=== PATIENT | male | born 1940 | race Caucasian/White ===

== ENCOUNTER → 2016-03-21 | Outpatient (CLI) | payer MEDICARE, BC ==
[~2016-03-21] MED LIST: ALBU17IN2 INH; ALBU83IN INH; ASPI81TA85 PO; ATEN25TA PO; COLA100C PO; FERG1TAB PO; FOLI1TAB2 PO; GABA300C3 PO; HYDR-3713 PO; MULTLIQ PO; NITR4TASL SL; PRAV40TA PO; SENO8.6T2 PO; SYMB16INH INH; TRIC1TAB PO; VITA500C24 PO; ZANT1TAB PO
== END ==
LOC: M ONCR 09:57
PROVIDERS: ATTEND Radiology Radiation Oncology
DX: C34.12 Malignant neoplasm of upper lobe, left bronchus or lung (principal)

== ENCOUNTER 2016-05-18 14:26 | Inpatient (IN) | payer MEDICARE, BC ==
[~2016-05-18] VITALS: Ht 167.6 cm; Wt 74.4 kg
[2016-05-18] MEDS: METOPROLOL 5 MG/5 ML VIAL IV SCH ×2 (00:12→00:17)
[2016-05-18] MEDS ORDERED: VITATAB11 PO (14:41)
[2016-05-18] MEDS ORDERED: [UNRECOGNIZED DRUG - CODE] (14:41)
[2016-05-18 16:01] LABS: BASO % 0.6 % (0.0-1.0); EOS # 0.2 K/mm3 (0.0-0.50); LARGE UNSTAINED CELL # 0.1 K/mm3 (0.0-0.4); LARGE UNSTAINED CELL % 0.6 % (0.0-4.0); LYMPH # 0.7 K/mm3 (1.5-4.5); LYMPH % 6.7 % (24.0-44.0); MEAN CORPUSCULAR HEMOGLOBIN 29.2 pg (27.0-33.0); MEAN CORPUSCULAR HGB CONC 32.4 g/dl (32.0-36.5); MONO # 0.5 K/mm3 (0.0-0.8); MONO % 5.4 % (0.0-5.0); NEUTROPHILS # 7.5 K/mm3 (1.8-7.7); NEUTROPHILS % 84.7 % (36.0-66.0); PLATELET COUNT, AUTOMATED 384 k/mm3 (150-450); RED CELL DISTRIBUTION WIDTH 13.1 % (11.5-14.5); WHITE BLOOD COUNT 8.9 K/mm3 (4.0-10.0)
--- NOTE | 2016-05-18 16:16 | REP ---
Portable chest x-ray: Sitting AP view: History: Dyspnea and cough. Comparison study 10/28/2014. Findings: The patient is status post prior median sternotomy. There is pleuroparenchymal opacity occupying the left lung apex unchanged from the 10/28/2014 prior study. The left hilus is retracted upward somewhat. There is some interstitial fibrosis in the left lung base and to a lesser extent in the right lung base. There is partial blunting of the right lateral pleural angle today. Pulmonary vascular and interstitial markings on the right are a little more prominent. Heart is not enlarged. Impression: Question small right effusion. Pulmonary vascular congestion noted on the right. Chronic changes on the left. Signed by Dillon Carrion MD 05/18/2016 05:19 P
[2016-05-18 16:43] LABS: ALBUMIN 3.3 GM/DL (3.2-5.2); ALBUMIN/GLOBULIN RATIO 0.89 (1.00-1.93); ALKALINE PHOSPHATASE 117 U/L (45-117); ANION GAP 9 MEQ/L (8-16); AST/SGOT 45 U/L (15-37); BILIRUBIN,DIRECT 0.2 MG/DL (0.0-0.2); BILIRUBIN,TOTAL 0.4 MG/DL (0.2-1.0); BLOOD UREA NITROGEN 12 MG/DL (7-18); CALCIUM LEVEL 8.3 MG/DL (8.8-10.2); CARBON DIOXIDE LEVEL 27 MEQ/L (21-32); CHLORIDE LEVEL 103 MEQ/L (98-107); CREATININE FOR GFR 0.96 MG/DL (0.70-1.30); GLOMERULAR FILTRATION RATE > 60.0 (>42); GLUCOSE, FASTING 105 MG/DL (83-110); MAGNESIUM LEVEL 2.3 MG/DL (1.8-2.4); POTASSIUM SERUM 3.9 MEQ/L (3.5-5.1); SODIUM LEVEL 139 MEQ/L (136-145)
[2016-05-18 16:51] LABS: ALT/SGPT 43 U/L (12-78)
[2016-05-18] MEDS ORDERED: AMOX875T PO (20:08)
[2016-05-18] MEDS ORDERED: PRESCAP6 PO (20:08)
[2016-05-18] MEDS ORDERED: ASPI1TAB PO (20:08)
[2016-05-18] MEDS ORDERED: FISH1000 PO (20:08)
[2016-05-18] MEDS ORDERED: NORCO, ANEXSIA 5/325MG TABLET (HYDROcodone/ACETAMINOPHEN) PO ONE (20:45)
[2016-05-18] MEDS ORDERED: GABAPENTIN 300 MG CAP PO ONE (20:45)
[2016-05-18] MEDS ORDERED: ISOVUE-370 76% 100ML VIAL (Q9967) As Ordered ONE (21:42)
[2016-05-18] MEDS ORDERED: NITROGLYCERIN 0.4 MG SUBL TABLET SL PRN (21:45)
[2016-05-18] MEDS ORDERED: LevoFLOXacin 750 MG TABLET PO ONE (22:00)
[2016-05-18 22:20] LABS: T UPTAKE 27 % (33-40); THYROXINE (T4) 3.5 UG/DL (4.5-12.0)
--- NOTE | 2016-05-18 23:05 | HPE ---
DATE OF ADMISSION: 05/18/2016 PRIMARY CARE PHYSICIAN: Dr. Wilson CHIEF COMPLAINT: Shortness of breath. HISTORY OF THE PRESENT ILLNESS: The patient is a 75-year-old man who has reportedly had a cough for the last 2 weeks. He presented to see his primary care provider 4 days ago and was prescribed amoxicillin. He states that over the last several days, his symptoms had improved but today, they were actually worsening. His checked his heart rate and found that his heart rate was in the 120s and so they called the primary care provider, who advised him to present to the emergency room. At the present time, the patient feels about the same. An EKG was done, and the patient was found to have a junctional rhythm. He does not have any improvement in his symptoms at this time. He denies fever or chills, chest pressure, lightheadedness, dizziness, nausea, vomiting or diarrhea. PAST MEDICAL HISTORY: Coronary artery disease, status post coronary artery bypass graft (CABG). Follows with Dr. Donato. Hypertension. Adenocarcinoma, currently undergoing surveillance. Chronic obstructive pulmonary disease (COPD). Former smoker. Bone cancer. Arteriovenous malformation (AVM) of the brain. PAST SURGICAL HISTORY: CABG. Cardiac stents. Tonsillectomy. Right cataract. Cervical spine surgery. SOCIAL HISTORY: The patient lives with his . He is a former smoker and former drinker, but nothing active at this time. He is a FULL CODE. ALLERGIES: SPIRIVA, ANGIOTENSIN-CONVERTING ENZYME (JAYY) INHIBITORS. REVIEW OF SYSTEMS: Negative other than in the history of the present illness. FAMILY HISTORY: Noncontributory. HOME MEDICATIONS: - amoxicillin 875 mg by mouth twice a day - PreserVision AREDS one capsule twice a day - hydrocodone 5-325 one tablet four times a day as needed for pain - Proventil two puffs inhaled every 4 hours as needed for respiratory distress - aspirin 81 mg daily - vitamin B complex - fish oil 1 gram nightly - folic acid 1 mg daily - gabapentin 300 mg twice a day - Nitrostat 0.4 mg sublingually as needed for chest pain - pravastatin 40 mg nightly PHYSICAL EXAMINATION: VITAL SIGNS: Temperature 98, pulse 122, stable, respiratory rate 18, blood pressure 141/72, oxygen saturation is 92% on room air. GENERAL: He is a very pleasant, elderly, man sitting up on the edge of the stretcher. He does not appear to be in any acute distress. HEENT: Cranial nerves II-XII are grossly intact. He has moist mucous membranes. No elevation of central venous pressure (CVP). No cervical lymphadenopathy. CARDIOVASCULAR EXAM: S1, S2, regular but tachycardic. RESPIRATORY EXAM: Clear. ABDOMINAL EXAM: Benign. EXTREMITIES: No clubbing, cyanosis or edema. LABORATORY STUDIES: WBC 8.9, hemoglobin 11.5, hematocrit 35.5, platelet count 384. Chemistry panel: Sodium 139, potassium 3.9, chloride 103, bicarbonate 27, BUN 12, creatinine 0.9. Troponin 0.32, second set approximately 3 hours later is 0.38. TSH is abnormally elevated at 31.6. Microbiology: Respiratory PCR panel is pending. Blood cultures are currently pending. IMAGING: The patient had a chest x-ray that reveals questionable small right effusion, pulmonary vascular congestion noted on the right, chronic changes on the left. EKG is revealing a junctional rhythm. ASSESSMENT AND PLAN: This is a 75-year-old man with new onset of junctional rhythm with demand ischemia. PROBLEMS: 1. Junctional rhythm. The patient's elevated troponin is likely related to type 2 demand ischemia. I have spoken with Dr. Donato, and I would like to give the patient metoprolol. He suggested IV metoprolol in order to get a target heart rate less than 100. I think this would do a great deal in terms of controlling the patient's symptoms. I will order an echocardiogram, admit him to the progressive care unit, recheck an EKG in the morning. His potassium and magnesium are optimized. 2. Cough and shortness of breath. Likely worsened symptomatic from his junctional rhythm, but he likely has some underlying infectious process going on for the last week and a half. He has been started on amoxicillin, but has not had improvement. I will transition to levofloxacin. At the present time, he not febrile. He does not have a focal consolidation on his x-ray. I will place him on levofloxacin for some possible bronchitis. However, I am more suspicious for viral infection, which is likely resolving. 3. Elevated thyroid-stimulating hormone (TSH). Will check a thyroid panel. I would not consider starting him on a thyroid medication at the present time given that he is already tachycardic. 4. Coronary artery disease. The patient is on an aspirin, statin and a beta jin, as we are starting metoprolol at this time. 5. Chronic pain. The patient is on gabapentin. 6. History of alcohol abuse. The patient is on folic acid and vitamin B complex. He is not actively drinking. 7. Chronic obstructive pulmonary disease (COPD), relatively mild. The patient appears to be at his baseline. Will continue with home inhalers. 8. Deep vein thrombosis (DVT) prophylaxis. The patient will be on Lovenox. DISPOSITION: The patient is admitted to the progressive care unit to Dr. Jason's service, who will continue following the patient at 7:00 a.m.
--- NOTE | 2016-05-18 23:10 | REPUSA ---
CLINICAL HISTORY: Shortness of breath, chest pain. TECHNIQUE: Multiple incremental axial, coronal and oblique images are obtained from the thoracic inle t to the upper abdomen. Intravenous contrast material was administered as per pulmonary embolism prot ocol. COMMENTS: There is excellent opacification of pulmonary arterial system without evidence for pulmonary embolism . Aorta is of normal caliber without evidence for dissection or aneurysm. Upper lobe predominant emphysema is seen. There is evidence of large right perihilar and suprahilar m ass measuring approximately 8 x 5 cm. Large right pleural effusion is seen. It is partially loculat ed. There is extensive right hilar adenopathy noted. There is marked volume loss involving left upper lobe with left apical consolidation noted. The gre at vessels are within normal limits. Status post median sternotomy and CABG. Images of the upper abdomen demonstrate no evidence of adrenal mass. The bony structures are free of lytic or blastic lesions. Multilevel degenerative changes are seen in volving the visualized thoracolumbar spine. Scattered calcifications are seen involving the aorta and major branches compatible with atherosclero sis. IMPRESSION: Large right hilar and suprahilar mass. Extensive right hilar adenopathy. Diffuse mediastinal adenopathy. Large right pleural effusion. Emphysema. Consider further evaluation with CT chest, abdomen and pelvis or PET CT. Thank you for your kind referral of this patient. We appreciate the opportunity to participate in thi s patient's care.
[2016-05-18 23:30] VITALS: BP 117/71
[2016-05-19] VITALS (9 sets, daily range): BP systolic 94–131; BP diastolic 56–84
[2016-05-19] MEDS: OMEGA-3 1050MG CAPSULE PO SCH ×2 (00:07→20:23)
[2016-05-19] MEDS: PRAVASTATIN 20 MG TAB PO SCH ×2 (00:07→20:22)
[2016-05-19] MEDS: METOPROLOL 5 MG/5 ML VIAL IV SCH (00:07)
[2016-05-19] MEDS: ALBUTEROL 90 MCG/ACT 8GM HFA INHALER INH PRN (02:14)
[2016-05-19] MEDS ORDERED: METOPROLOL 5 MG/5 ML VIAL IV PRN ×2 (02:15→06:00)
[2016-05-19 07:01] LABS: MEAN CORPUSCULAR HEMOGLOBIN 28.6 pg (27.0-33.0); MEAN CORPUSCULAR HGB CONC 32.1 g/dl (32.0-36.5); MEAN CORPUSCULAR VOLUME 89.3 fl (80.0-96.0); RED CELL DISTRIBUTION WIDTH 12.9 % (11.5-14.5); WHITE BLOOD COUNT 9.7 K/mm3 (4.0-10.0)
[2016-05-19 07:13] LABS: ANION GAP 10 MEQ/L (8-16); BLOOD UREA NITROGEN 11 MG/DL (7-18); CALCIUM LEVEL 8.3 MG/DL (8.8-10.2); CARBON DIOXIDE LEVEL 25 MEQ/L (21-32); CHLORIDE LEVEL 102 MEQ/L (98-107); CREATININE FOR GFR 0.84 MG/DL (0.70-1.30); GLOMERULAR FILTRATION RATE > 60.0 (>42); GLUCOSE, FASTING 99 MG/DL (83-110); POTASSIUM SERUM 3.9 MEQ/L (3.5-5.1); SODIUM LEVEL 137 MEQ/L (136-145)
--- NOTE | 2016-05-19 09:06 | ECGEPIP ---
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
[2016-05-19] MEDS: ASPIRIN 81 MG ENTERIC TAB PO SCH (09:21)
[2016-05-19] MEDS: VITAMIN B COMPLEX/VIT C CAP PO SCH (09:21)
[2016-05-19] MEDS: GABAPENTIN 300 MG CAP PO SCH ×2 (09:21→20:24)
[2016-05-19] MEDS: FOLIC ACID 1 MG TAB PO SCH (09:21)
[2016-05-19] MEDS: ENOXAPARIN 40 MG/0.4 ML SYRINGE (J1650) SC SCH (09:22)
[2016-05-19] MEDS: NORCO, ANEXSIA 5/325MG TABLET (HYDROcodone/ACETAMINOPHEN) PO PRN ×2 (09:25→20:23)
[2016-05-19] MEDS: AMIODARONE 200 MG TAB (PACERONE) PO SCH ×4 (09:57→20:24)
[2016-05-19] MEDS ORDERED: AMIODARONE 200 MG TAB (PACERONE) PO SCH (12:00)
--- NOTE | 2016-05-19 12:57 | IPNPDOC ---
Subjective Date Seen The patient was seen on 05/19/16. Subjective Chief Complaint/HPI Pt c/o about 2-3 w of increased cough, and RUSSELL, low exercise tolerance. is at bedside and she agrees. States that they have a scan scheduled for Spring ordered by Dr Weber to follow up on lung nodules. No longer following with oncology. General: Reports: Fatigue Constitutional: Denies: Chills, Fever ENT: Denies: Head Aches Pulmonary: Reports: Cough, Dyspnea Cardiovascular: Denies: Chest Pain, Palpitations Gastrointestinal: Denies: Diarrhea, Nausea, Vomiting Neurological: Reports: Weakness Psych: Reports: Mood Normal Objective Physical Examination General Exam: Positive: Alert, No Acute Distress ENT Exam: Positive: Mucous membr. moist/pink Neck Exam: Positive: Supple Chest Exam: Positive: Diminished (thoughout, but especially in right base, middle lung ulloa. scattered rhonchi, improves with cough) Heart Exam: Positive: Normal S1, Rate Normal Abdomen Exam: Positive: Normal bowel sounds, Soft, Negative: Tenderness Psych Exam: Positive: Mood NL, Oriented x 3 Assessment /Plan Problems (1) Junctional tachycardia Status: Acute Discussed With: Adjunct Professor Of English, Patient, Family with Pt Consent Problem Specific Plan: Consult Specialist, Monitor Clinically, Repeat Labs Problem Text: Dr Donato has been consulted, he has spoken with Dr Jason. Rec starting Amio, which has been ordered. (2) Mediastinal mass Status: Acute Problem Specific Plan: Monitor Clinically Problem Text: Pt has a h/o of adenocarcinoma of the lung, he has followed with Dr Weber for this, he has undergone chemotherapy with palliative Radiation therapy per the Onc notes. Last CT done 11/24 with relatively stable nodules. Will obtain CT with contrast of the chest, A & P. This is likely the source of his cough and SOB. Will request consult Dr. Macias, whom he has seen before. (3) History of adenocarcinoma of lung Status: Chronic Problem Specific Plan: Consult Specialist, Monitor Clinically Problem Text: See above. (4) CAD (coronary artery disease) of artery bypass graft Status: Chronic Problem Specific Plan: Monitor Clinically Problem Text: Cont with ASA, statin. Cardio follow. Plan/VTE VTE Prophylaxis Ordered?: Yes Plan Advance Directives: HCP Full code VS, I&O, 24H, Fishbone Vital Signs/I&O Vital Signs Date Time Temp Pulse Resp B/P Pulse Ox O2 Delivery O2 Flow Rate FiO2 05/19/16 12:21 97.0 117 20 131/84 94 Nasal Cannula 2.0 I&O- Last 24 Hours up to 6 AM 05/19/16 06:00 Intake Total 480 ml Output Total 250 ml Balance 230 ml Laboratory Data 24H LABS Laboratory Tests 2 05/18/16 15:51: Aspartate Amino Transf (AST/SGOT) 45H, Alanine Aminotransferase (ALT/SGPT) 43, Alkaline Phosphatase 117, Total Bilirubin 0.4, Direct Bilirubin 0.2, Albumin 3.3 , Albumin/Globulin Ratio 0.89L, Anion Gap 9, B-Type Natriuretic Peptide 83.9, White Blood Count 8.9, Red Blood Count 3.95L, Hemoglobin 11.5L, Hematocrit 35.5L , Mean Corpuscular Volume 90.0, Mean Corpuscular Hemoglobin 29.2, Mean Corpuscular Hemoglobin Concent 32.4, Red Cell Distribution Width 13.1, Platelet Count 384, Neutrophils (%) (Auto) 84.7H, Lymphocytes (%) (Auto) 6.7L, Monocytes (%) (Auto) 5.4H, Eosinophils (%) (Auto) 2.0, Basophils (%) (Auto) 0.6, Neutrophils # (Auto) 7.5, Lymphocytes # (Auto) 0.7L, Monocytes # (Auto) 0.5, Eosinophils # (Auto) 0.2, Basophils # (Auto) 0.0, C-Reactive Protein, Quantitative 12.60H, Calcium Level 8.3L, Creatine Kinase MB 5.7H, Creatine Kinase MB Relative Index 2.92, Erythrocyte Sedimentation Rate 85H, Free Thyroxine Index 0.9L, Glomerular Filtration Rate > 60.0, Large Unclassified Cells # 0.1, Large Unclassified Cells % 0.6, Magnesium Level 2.3, Thyroid Stimulating Hormone (TSH) 31.600H, Thyroxine (T4) 3.5L, Total Creatine Kinase 195, Total Protein 7.0, Triiodothyronine (T3) Uptake 27L, Troponin I 0.32H 05/18/16 19:09: Creatine Kinase MB 5.5H, Creatine Kinase MB Relative Index 2.95, Total Creatine Kinase 186, Troponin I 0.38H 05/19/16 00:40: Troponin I 0.35H 05/19/16 06:36: Anion Gap 10, Calcium Level 8.3L, Glomerular Filtration Rate > 60.0, Troponin I 0.47#H, Blood Urea Nitrogen 11, Creatinine 0.84, Sodium Level 137, Potassium Level 3.9, Chloride Level 102, Carbon Dioxide Level 25 CBC/BMP Laboratory Tests 05/18/16 15:51 Red Blood Count 3.95 L, Mean Corpuscular Volume 90.0, Mean Corpuscular Hemoglobin 29.2, Mean Corpuscular Hemoglobin Concent 32.4, Red Cell Distribution Width 13.1, Neutrophils (%) (Auto) 84.7 H, Lymphocytes (%) (Auto) 6.7 L, Monocytes (%) (Auto) 5.4 H, Eosinophils (%) (Auto) 2.0, Basophils (%) ( Auto) 0.6, Neutrophils # (Auto) 7.5, Lymphocytes # (Auto) 0.7 L, Monocytes # ( Auto) 0.5, Eosinophils # (Auto) 0.2, Basophils # (Auto) 0.0 05/19/16 06:36 Red Blood Count 3.78 L, Mean Corpuscular Volume 89.3, Mean Corpuscular Hemoglobin 28.6, Mean Corpuscular Hemoglobin Concent 32.1, Red Cell Distribution Width 12.9, Calcium Level 8.3 L Microbiology Microbiology 05/18/16 Blood Culture, Received Pending 05/18/16 Blood Culture, Received Pending 05/18/16 Respiratory Virus Panel (PCR) (AMISHA) - Final, Complete Attending Note Attending Note Will need consults from Pulmonary, Med Onc, Radiation Oncology, and possible Thoracic surgery. Start with Pulmonary tomorrow. Dr. Donato has been consulted regarding the tachyarrhythmia and Amiodarone started per his recommendation. WAQAR ANDERSON PA-C May 19, 2016 12:57 Fletcher Jason MD May 19, 2016 14:10
--- NOTE | 2016-05-19 15:06 | ECGEPIP ---
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
--- NOTE | 2016-05-19 15:15 | ECGEPIP ---
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
[2016-05-19] MEDS: LevoFLOXacin 750 MG TABLET PO SCH (17:56)
[2016-05-20] VITALS: BP 101/56
[2016-05-20 04:00] VITALS: BP 103/57
[2016-05-20 05:35] LABS: MEAN CORPUSCULAR HEMOGLOBIN 29.7 pg (27.0-33.0); MEAN CORPUSCULAR HGB CONC 32.7 g/dl (32.0-36.5); MEAN CORPUSCULAR VOLUME 90.9 fl (80.0-96.0); RED CELL DISTRIBUTION WIDTH 13.2 % (11.5-14.5); WHITE BLOOD COUNT 9.2 K/mm3 (4.0-10.0)
[2016-05-20 05:45] LABS: ANION GAP 8 MEQ/L (8-16); BLOOD UREA NITROGEN 13 MG/DL (7-18); CALCIUM LEVEL 8.1 MG/DL (8.8-10.2); CARBON DIOXIDE LEVEL 28 MEQ/L (21-32); CHLORIDE LEVEL 102 MEQ/L (98-107); CREATININE FOR GFR 1.02 MG/DL (0.70-1.30); GLOMERULAR FILTRATION RATE > 60.0 (>42); GLUCOSE, FASTING 99 MG/DL (83-110); POTASSIUM SERUM 4.1 MEQ/L (3.5-5.1); SODIUM LEVEL 138 MEQ/L (136-145)
[2016-05-20] MEDS ORDERED: GASTROGRAFIN SOLUTION 30ML PO ONE (07:00)
[2016-05-20] MEDS ORDERED: GASTROGRAFIN SOLUTION 30ML (Q9963) PO ONE (07:30)
[2016-05-20] MEDS: VITAMIN B COMPLEX/VIT C CAP PO SCH (07:53)
[2016-05-20] MEDS: GABAPENTIN 300 MG CAP PO SCH ×2 (07:53→21:31)
[2016-05-20] MEDS: ASPIRIN 81 MG ENTERIC TAB PO SCH (07:53)
[2016-05-20] MEDS: FOLIC ACID 1 MG TAB PO SCH (07:53)
[2016-05-20] MEDS: AMIODARONE 200 MG TAB (PACERONE) PO SCH ×4 (07:53→21:31)
[2016-05-20] MEDS: ENOXAPARIN 40 MG/0.4 ML SYRINGE (J1650) SC SCH (07:54)
[2016-05-20 07:58] VITALS: BP 112/71
[2016-05-20] MEDS ORDERED: ISOVUE-370 76% 100ML VIAL (Q9967) As Ordered ONE (08:25)
--- NOTE | 2016-05-20 08:28 | ECGEPIP ---
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
--- NOTE | 2016-05-20 09:39 | IPNPDOC ---
Subjective Date Seen The patient was seen on 05/20/16. Subjective Chief Complaint/HPI Pt without new concerns. Breathing about the same with SOB, and cough. at bedside. General: Denies: Fatigue Constitutional: Denies: Chills, Fever Pulmonary: Reports: Cough, Dyspnea Cardiovascular: Denies: Chest Pain, Palpitations Gastrointestinal: Denies: Diarrhea, Nausea, Vomiting Neurological: Reports: Weakness Psych: Reports: Mood Normal Objective Physical Examination General Exam: Positive: Alert, No Acute Distress ENT Exam: Positive: Mucous membr. moist/pink Neck Exam: Positive: Supple Chest Exam: Positive: Diminished (thoughout, but especially in right base, middle lung ulloa. scattered rhonchi, improves with cough) Heart Exam: Positive: Normal S1, Rate Normal Abdomen Exam: Positive: Normal bowel sounds, Soft, Negative: Tenderness Psych Exam: Positive: Mood NL, Oriented x 3 Assessment /Plan Problems (1) Junctional tachycardia Status: Acute Discussed With: Contract Lead, Patient, Family with Pt Consent Problem Specific Plan: Consult Specialist, Monitor Clinically, Repeat Labs Problem Text: 05/20 - Rate remains mostly 110s, on Amio. 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 05/19 Dr Donato has been consulted, he has spoken with Dr Jason. Rec starting Amio, which has been ordered. (2) Mediastinal mass Status: Acute Problem Specific Plan: Monitor Clinically Problem Text: 05/20 - CT chest, A & P just done. Pt has seen Dr Macias in the past, will need consult for her recommendation on proceeding with investigation of the mass. 05/19 Pt has a h/o of adenocarcinoma of the lung, he has followed with Dr Weber for this, he has undergone chemotherapy with palliative Radiation therapy per the Onc notes. Last CT done 11/24 with relatively stable nodules. Will obtain CT with contrast of the chest, A & P. This is likely the source of his cough and SOB. Will request consult Dr. Macias, whom he has seen before. (3) History of adenocarcinoma of lung Status: Chronic Problem Specific Plan: Consult Specialist, Monitor Clinically Problem Text: See above. (4) CAD (coronary artery disease) of artery bypass graft Status: Chronic Problem Specific Plan: Monitor Clinically Problem Text: Cont with ASA, statin. Cardio follow. Plan/VTE VTE Prophylaxis Ordered?: Yes Plan Advance Directives: HCP VS, I&O, 24H, Fishbone Vital Signs/I&O Vital Signs Date Time Temp Pulse Resp B/P Pulse Ox O2 Delivery O2 Flow Rate FiO2 05/20/16 07:58 97.8 95 22 112/71 94 Nasal Cannula 2.0 I&O- Last 24 Hours up to 6 AM 05/20/16 06:00 Intake Total 1140 ml Output Total 975 ml Balance 165 ml Laboratory Data 24H LABS Laboratory Tests 2 05/20/16 05:07: Anion Gap 8, Blood Urea Nitrogen 13, Creatinine 1.02, Sodium Level 138, Potassium Level 4.1, Chloride Level 102, Carbon Dioxide Level 28, Calcium Level 8.1L, Glomerular Filtration Rate > 60.0 CBC/BMP Laboratory Tests 05/20/16 05:07 Calcium Level 8.1 L, Red Blood Count 3.57 L, Mean Corpuscular Volume 90.9, Mean Corpuscular Hemoglobin 29.7, Mean Corpuscular Hemoglobin Concent 32.7, Red Cell Distribution Width 13.2 Microbiology Microbiology 05/18/16 Blood Culture - Preliminary, Resulted No growth after 24 hours . All specim... 05/18/16 Blood Culture - Preliminary, Resulted No growth after 24 hours . All specim... 05/18/16 Respiratory Virus Panel (PCR) (AMISHA) - Final, Complete WAQAR ANDERSON PA-C May 20, 2016 09:39
[2016-05-20 12:15] VITALS: BP 113/79
--- NOTE | 2016-05-20 12:29 | ECHO ---
DATE OF PROCEDURE: 05/19/2016 HEIGHT: 66 inches. WEIGHT: 171 pounds. BODY SURFACE AREA: 1.87 meters squared. REFERRING PHYSICIAN: Dr. Olmstead INDICATION: Abnormal EKG. MEASUREMENTS: 2-D Measurements: RV - 3.4 cm LV - 4.6 cm Septum - 1.3 cm Posterior wall - 1.3 cm Aortic root - 3.0 cm LA - 4.2 cm LVEF - 45 to 50% Doppler Measurements: AV - 1.9 meters per second LVOT - 1.0 meters per second LVOT diameter - 2.3 cm MV-E -150 Early mitral deceleration time - 108 milliseconds E prime -8, E/E prime ratio 18 PV - 0.8 meters per second Pulmonary artery acceleration time - 106 milliseconds RVSP - 31 mmHg IVC - 1.6 cm COMMENTS: Atrial tachycardia versus slow atrial flutter with somewhat variable ventricular response but no intraventricular conduction disturbance. Mildly dilated left atrium but normal left ventricular size. Right heart chamber sizes were also normal. LV wall thickness was mildly increased symmetrically. On real-time imaging from the parasternal and apical projections the inferoseptal/inferior wall was hypokinetic to akinetic but other calixto appear to move normally. Mild to moderate mitral annular thickening with normal leaflet thickness and excursion and no posterior systolic buckling. Difficult to ascertain how many aortic cusps there were. There was a moderate degree of cusp thickening with reduced cusp separation. Normal aortic root size. No apparent intracardiac mass or pericardial effusion. Color flow Doppler study taken from the parasternal and apical projection showed very mild aortic, mild? moderate? mitral and mild tricuspid insufficiency. Guided continuous wave Doppler of his aortic valve and pulsed Doppler study of his LV outflow tract taken from the apical long axis and five-chamber projection showed a borderline increased peak systolic velocity with mean gradient of 10 mmHg and dimensionless index of 0.47 suggestive of a marginal degree of calcific aortic stenosis. Guided pulsed and continuous wave Doppler of his LV inflow tract taken from the apical four-chamber projection showed normal diastolic filling velocities against mitral stenosis. There was only an early diastolic/passive filling pattern as we would expect with his tachycardia. His early mitral deceleration time was abbreviated. Using pulsed and tissue Doppler of his mitral annulus, we were able to estimate his mean left atrial pressure at approximately 20 mmHg. Pulsed and continuous wave Doppler of his pulmonary trunk showed a normal peak systolic velocity against RV outflow tract obstruction. His pulmonary artery acceleration time was slightly abbreviated suggestive of a degree of elevated pulmonary vascular resistance. Guided continuous wave Doppler of his tricuspid valve allowed our estimation of his right ventricular systolic pressure (borderline increased). His inferior vena cava was of normal size with normal respiratory collapse against an elevated central venous pressure. CONCLUSIONS: Mild concentric left ventricle hypertrophy with inferoseptal/inferior hypokinesis and at least mild impairment of global resting systolic function. 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 Mildly dilated left atrium with Doppler evidence of an elevated mean left atrial pressure. Normal right heart chamber sizes and wall motion with borderline increased estimated pulmonary arterial pressure. Normal IVC size and collapse against an elevated central venous pressure. Marginal calcific aortic stenosis with very mild insufficiency. Mitral annular calcification without inflow tract obstruction with mild insufficiency.
--- NOTE | 2016-05-20 15:06 | REP ---
REASON: Known chest mass. COMPARISON: 05/18/2016. Contrast utilized: 100 mL Isovue 370. Once again, there is a large right hilar mass, which occludes the right lower lobe bronchus and markedly narrows the right middle lobe bronchus mildly narrowing the bronchus to the right upper lobe. This mass is seen in conjunction with mediastinal adenopathy. The right lower lobe pulmonary artery is encased by the mass but does not appear to be narrowed. There is a moderate right pleural effusion, which has increased in size from the prior exam. There is no pericardial effusion. There is no change in the appearance of the imaged upper abdomen or imaged osseous structures. Evaluation of the lung ulloa show increased densities in the right lower lobe and right middle lobe compared to the prior exam. There is new consolidation with air bronchograms in the anterior left upper lobe. Scattered numerable tiny nodular densities are seen throughout the lung ulloa, status quo. There is no change in the appearance of the thoracic aorta. Right upper lobe increased opacities are also noted compared to the prior exam. IMPRESSION: 1. Increased right pleural effusion. 2. Increased abnormal right lower and right middle lobe opacities with increased opacities in the right upper lobe. 3. Right hilar vascular and bronchial findings as described above. 4. New abnormal left upper lobe opacity as described above. 5. Unchanged innumerable nodular densities throughout the lung ulloa. 6. Other findings as described above. Signed by Surendra Starr DO 05/20/2016 03:18 P
--- NOTE | 2016-05-20 15:12 | REP ---
REASON: Known mass. No prior abdominal CT studies for comparison. Contrast utilized 100 mL Isovue 370. There are numerable liver lesion; two low density at the hepatic dome each having increased density surrounding them suggestive of peripheral enhancement. There is a similar finding seen in the anterior segment of the right lobe. Scattered areas of increased enhancement are seen in the hepatic parenchyma. The gallbladder, spleen, pancreas, adrenal glands, and kidneys are within normal limits. The abdominal aorta and para-aortic regions are within normal limits for the patient's age. No free fluid or free air is seen in the abdomen or pelvis. The intra-abdominal and intrapelvic bowel loops and their mesenteries are within normal limits. There are scattered colonic diverticula. There is no evidence of an intra-abdominal or intrapelvic mass or adenopathy. 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 There are calcifications in the pelvis which closely reside to the posterior urinary bladder wall. I cannot completely rule out the possibility of a few small cystoliths. This needs to be correlated clinically. The calcifications may in fact be within the urinary bladder wall. Bone window technique throughout the exam shows bony demineralization which is probably degenerative changes. IMPRESSION: 1. Hepatic lesions suspicious for metastatic disease. 2. Pelvic calcifications with prostatomegaly and corpora amylacea as described above. 3. Other findings as described above. Signed by Surendra Starr DO 05/20/2016 03:18 P
[2016-05-20 16:00] VITALS: BP 126/60
[2016-05-20] MEDS: LevoFLOXacin 750 MG TABLET PO SCH (17:49)
[2016-05-20] MEDS: NORCO, ANEXSIA 5/325MG TABLET (HYDROcodone/ACETAMINOPHEN) PO PRN (19:14)
[2016-05-20 20:00] VITALS: BP 109/62
[2016-05-20] MEDS: PRAVASTATIN 20 MG TAB PO SCH (21:31)
[2016-05-21] VITALS (9 sets, daily range): BP systolic 100–139; BP diastolic 56–67; O2SAT 94
[2016-05-21] MEDS: NORCO, ANEXSIA 5/325MG TABLET (HYDROcodone/ACETAMINOPHEN) PO PRN ×4 (00:02→22:00)
[2016-05-21] MEDS ORDERED: SLF 3 ML SYR IV PRN (02:15)
[2016-05-21] MEDS: ALBUTEROL 90 MCG/ACT 8GM HFA INHALER INH PRN ×2 (04:29→21:44)
[2016-05-21 05:44] LABS: MEAN CORPUSCULAR HEMOGLOBIN 29.6 pg (27.0-33.0); MEAN CORPUSCULAR HGB CONC 32.6 g/dl (32.0-36.5); MEAN CORPUSCULAR VOLUME 90.6 fl (80.0-96.0); RED CELL DISTRIBUTION WIDTH 13.2 % (11.5-14.5); WHITE BLOOD COUNT 9.7 K/mm3 (4.0-10.0)
[2016-05-21 05:47] LABS: INR 1.21
[2016-05-21 05:51] LABS: ANION GAP 10 MEQ/L (8-16); BLOOD UREA NITROGEN 14 MG/DL (7-18); CALCIUM LEVEL 8.2 MG/DL (8.8-10.2); CARBON DIOXIDE LEVEL 27 MEQ/L (21-32); CHLORIDE LEVEL 99 MEQ/L (98-107); CREATININE FOR GFR 1.07 MG/DL (0.70-1.30); GLOMERULAR FILTRATION RATE > 60.0 (>42); GLUCOSE, FASTING 105 MG/DL (83-110); POTASSIUM SERUM 3.8 MEQ/L (3.5-5.1); SODIUM LEVEL 136 MEQ/L (136-145)
[2016-05-21] MEDS: SLF 3 ML SYR IV SCH ×3 (05:58→21:59)
[2016-05-21] MEDS: FOLIC ACID 1 MG TAB PO SCH (09:20)
[2016-05-21] MEDS: GABAPENTIN 300 MG CAP PO SCH ×2 (09:20→21:56)
[2016-05-21] MEDS: ASPIRIN 81 MG ENTERIC TAB PO SCH (09:20)
[2016-05-21] MEDS: AMIODARONE 200 MG TAB (PACERONE) PO SCH ×4 (09:20→21:56)
--- NOTE | 2016-05-21 11:01 | REP ---
Portable chest x-ray: Single view. History: Pleural fluid evaluation. Comparison study May 18, 2016. Findings: The patient is status post median sternotomy. There is atelectasis in the left upper lobe with upward elevation left hemidiaphragm unchanged from comparison study. There is increased blunting of the right lateral pleural angle and slight elevation right hemidiaphragm today consistent with increased effusion. There is some consolidation or interstitial edema in the right lung, principally lower lobe. Fullness in the right hilar region is again seen. Impression: Increased right pleural fluid and increased parenchymal opacity right lung. Signed by Dillon Carrion MD 05/21/2016 12:27 P
--- NOTE | 2016-05-21 12:24 | ECGEPIP ---
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
--- NOTE | 2016-05-21 12:44 | REP ---
Chest x-ray: Two views. History: Patient status post right thoracentesis under ultrasound guidance. Comparison study May 21, 2016. Findings: There is improved aeration in the right lung. There is no visible pneumothorax. Chronic changes noted on the left are again seen. Impression: Improved aeration right lung post thoracentesis. No complication is identified. Signed by Dillon Carrion MD 05/21/2016 07:16 P
[2016-05-21 12:51] LABS: LDH, BODY FLUID 213 U/L (NOT ESTABLISHED); TOTAL PROTEIN, BODY FLUID 4.7 G/DL (NOT ESTABLISHED)
[2016-05-21 12:59] LABS: RBC PLEURAL FLUID < 10 (<10mm3 cells/uL); TNC PLEURAL FLUID 703 cells/uL (0-20)
[2016-05-21 13:00] LABS: BF DIFF IF INDICATED? YES (NO)
[2016-05-21 14:39] LABS: CC BF DIFF EXAM CYTOCENTRIFUGE
--- NOTE | 2016-05-21 15:15 | CR ---
DATE OF CONSULTATION: 05/20/2016 NOTE: Asked by Dr. Jason to evaluate Mr. Griffin for changes on his chest CT scan. Alli, as he prefers to be called, is a 75-year-old white male well-known to me from his history of chronic obstructive pulmonary disease (COPD) as well as metastatic adenocarcinoma of the left lung for which he has undergone radiation therapy (XRT) and chemotherapy. Alli began to feel generally unwell 2-3 weeks ago with increasing shortness of breath. He was noting marked dyspnea with short distances, such as walking to the bathroom. He also developed a cough that he states was occasionally productive of yellowish sputum. His , who was present when I was in the room, states it sounded like a deep cough. No fevers. No wheezing. He had a little bit of discomfort in the right lower lobe or right upper gastric region that has resolved. He was seen by his primary care provider and he was diagnosed with sinusitis and started on amoxicillin. His went to take his blood pressure on Saturday evening because he was feeling unwell and noted that his pulse was 128 so she brought him to the emergency room. During his evaluation there, he was found to have a junctional rhythm. He also had a pulmonary angiogram done which had shown chronic changes on the left, but now had shown a new right perihilar and suprahilar mass as well as a small pleural effusion. It was less clear as to whether or not there was any postobstructive process, but there did not appear to be any consolidated regions. It was because of these changes that pulmonary was consulted. Alli feels about the same as when he came in. He has no difficulty with resting but still notes significant shortness of breath with walking. He has no further chest pain or upper abdominal pain. No wheezing. He continues with a cough that is essentially unchanged. No hemoptysis. No fevers, chills, or drenching night sweats. No lower extremity edema. He has had some postnasal drip symptoms. No heartburn or gastroesophageal reflux disease (GERD) symptoms. No lower extremity edema. No diarrhea or other acute infective processes. No ill contacts. ALLERGIES: LISINOPRIL and SPIRIVA. MEDICATIONS ON ADMISSION: - hydrocodone 5/325 one tablet by mouth four times a day as needed - albuterol nebulization every 4 hours as needed - amoxicillin 875 mg by mouth twice a day - aspirin 81 mg by mouth daily - vitamin B complex one by mouth daily - fish oil 1000 mg by mouth every evening - folic acid 1 mg by mouth daily - gabapentin 300 mg by mouth twice a day - Nitrostat 0.4 mg as needed - Pravachol 40 mg by mouth every 8 hours - PreserVision AREDS one capsule by mouth twice a day PAST MEDICAL HISTORY: 1. Abnormal chest CT scan post treatment with opacification of the left upper lung region. 2. Metastatic adenocarcinoma of the left lung; status post XRT to the left upper lobe and chemotherapy. 3. COPD; mild/moderate with partial reversibility. a. FEV1 1.88 (73%) and FVC 2.76 (77%) with a normal FEV1/FVC ratio of 68% in July 2015. 4. Right lower lobe nodule measured at 18 mm that was biopsied by electromagnetic navigation bronchoscopy (ENB) with negative results that were considered nondiagnostic. 5. Coronary artery disease (CAD). a. Status post coronary artery bypass graft (CABG) and cardiac stents. 6. Status post tonsillectomy. 7. Status post right cataract surgery. 8. Cervical spine surgery. 9. Arteriovenous malformation (AVM). 10. Bone cancer per patient status post XRT. 11. History of significant alcohol usage. 12. History of tobacco usage. SOCIAL HISTORY: Alli is and lives with his . 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 FAMILY HISTORY: His father in his late 60s and had heart disease. His mother in her late 60s and he is not aware of any significant medical illness. REVIEW OF SYSTEMS: Per history of present illness (HPI). Pertinent review of systems are negative. PHYSICAL EXAMINATION: GENERAL: Alli is lying in bed in no acute distress. At times he is difficult to understand. VITAL SIGNS: Temperature 96.3, pulse 78, respiratory rate 20, blood pressure 113/79 with a mean arterial pressure (MAP) of 90, SpO2 94% on FiO2 of 2 liters. HEENT: Anicteric. Nares patent bilaterally, oxygen tubing in place. Oropharynx clear, no lesions. No evidence of drainage in the posterior pharynx. Edentulate, Mallampati II. Facies normal. NECK: Supple, without jugular venous distention (JVD), thyromegaly, or masses, trachea is midline. LYMPHATICS: Without cervical, supraclavicular, or lymphadenopathy. CHEST: Normal size and shape. Lungs symmetric excursion. Generalized diminished air entry with absent air entry at the right base. There is dullness to percussion over the same region. Rare expiratory wheeze. No rhonchi or crackle on tidal excursion. No accessory muscle usage or retractions. Normal palpation. There is also dullness to percussion over the left upper lung region. CARDIOVASCULAR: Regular rate and rhythm with a normal S1, S2, no murmur, rub, or gallop appreciated. ABDOMEN: Normoactive bowel sounds, soft, nondistended, nontender, no hepatosplenomegaly or masses appreciated. EXTREMITIES: Without clubbing, cyanosis, or edema. No calf tenderness. Palpable pedal pulses bilaterally. LABORATORY DATA: CBC shows a hemoglobin of 10.6, hematocrit 32.4, platelet count 386,000, white blood cell count 9200. Chemistry shows sodium 138, potassium 4.1, chloride 102, bicarbonate 28, anion gap 8, BUN 13, creatinine 1.0, glucose 99, calcium 8.1. I reviewed his chest CT scan as well as his CT pulmonary angiogram and the report of the CTA. That film showed a consolidated region in the left upper lobe which, in comparing to his CT scan from December 2014, is chronic and related to his previous therapy. He has mild emphysematous changes predominantly in the upper lobes bilaterally. Normal appearing cardiac silhouette and pulmonary vascular shadows. There is a small pulmonary effusion on the right (only a blunting on chest xray) with right hilar adenopathy and a right perihilar and suprahilar mass measured at 8.8 x 5 cm. There are also enlarged mediastinal lymph nodes. There appears to be some necrotic regions within the suprahilar mass as well as possibly one of the mediastinal lymph nodes. IMPRESSION: 1. Abnormal chest CT scan with right-sided suprahilar and parahilar mass. Unfortunately, the most likely diagnosis is lung cancer, either a recurrence or a new primary. 2. Right pleural effusion, possibly malignant or possibly secondary to volume loss on the right side. 3. Cough, likely related to the findings on the chest CT scan. 4. Dyspnea on exertion. Again, I suspect that this is related to the changes on chest CT scan as he only demonstrated mild obstructive disease in July 2015. It seems less likely that this is secondary to a pneumonic process. 5. Chronic obstructive pulmonary disease (COPD), mild/moderate at baseline, felt secondary to emphysema. He also has a significant reversible component. 6. Coronary artery disease (CAD). 7. Cerebral arteriovenous malformation (AVM). 8. History of ethyl alcohol (EtOH) and tobacco usage. RECOMMENDATIONS: 1. I spoke to Bridgette from Dr. Jason's service and recommended a large volume thoracentesis to be sent off for cell count and differential, lactate dehydrogenase (LDH), total protein, glucose, gram stain and culture and cytology. 2. I reviewed the chest CT scan with Alli and his and answered questions. I discussed with them that unfortunately this is likely a new or recurrent lung cancer. I told them that after the thoracentesis we would likely need to re-image his chest to decide on a procedure for obtaining tissue if his choice was to go on for further treatment. His treatment options are likely to be limited given his previous history. 3. Agree with antibiotics, though again I am not certain there is a postobstructive process present. 4. Would continue as needed bronchodilators. When I last saw Alli in clinic in July 2015, he was no longer on any controller therapy. Thank you for this consult and we will continue to follow with you.
--- NOTE | 2016-05-21 16:00 | IPNPDOC ---
Subjective Date Seen The patient was seen on 05/21/16. Subjective Chief Complaint/HPI The patient is a 75-year-old male admitted with a reason for visit of SOB. He is status post thoracentesis. His notes that he has been oxygenating better afterwards, and he feels that he is less short of breath. He is interested in leaving the hospital soon. He complains of low back pain, which is chronic, and is somewhat upset that he is being awakened for vital signs. Constitutional: Reports: Fatigue, Weakness, Denies: Fever Pulmonary: Reports: Cough, Dyspnea Cardiovascular: Denies: Chest Pain Gastrointestinal: Denies: Constipation Musculoskeletal: Reports: Back Pain Psych: Reports: Mood Normal Objective Physical Examination General Exam: Positive: Alert, No Acute Distress ENT Exam: Positive: Mucous membr. 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 05/20 - Rate remains mostly 110s, on Amio. 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 05/19 Dr Donato has been consulted, he has spoken with Dr Jason. Rec starting Amio, which has been ordered. (2) Mediastinal mass Status: Acute Problem Specific Plan: Monitor Clinically Problem Text: 05/21 -- Thoracentesis performed today, labs pending. Dr. Macias consulted. Will attempt to titrate O2. 05/20 - CT chest, A & P just done. Pt has seen Dr Macias in the past, will need consult for her recommendation on proceeding with investigation of the mass. 05/19 Pt has a h/o of adenocarcinoma of the lung, he has followed with Dr Weber for this, he has undergone chemotherapy with palliative Radiation therapy per the Onc notes. Last CT done 11/24 with relatively stable nodules. Will obtain CT with contrast of the chest, A & P. This is likely the source of his cough and SOB. Will request consult Dr. Macias, whom he has seen before. (3) History of adenocarcinoma of lung Status: Chronic Problem Specific Plan: Consult Specialist, Monitor Clinically Problem Text: See above. (4) CAD (coronary artery disease) of artery bypass graft Status: Chronic Problem Specific Plan: Monitor Clinically Problem Text: Cont with ASA, statin. Cardio follow. Plan/VTE VTE Prophylaxis Ordered?: Yes Plan Advance Directives: HCP VS, I&O, 24H, Fishbone Vital Signs/I&O Vital Signs Date Time Temp Pulse Resp B/P Pulse Ox O2 Delivery O2 Flow Rate FiO2 05/21/16 13:30 98.6 78 20 139/67 96 Nasal Cannula 2.0 I&O- Last 24 Hours up to 6 AM 05/21/16 06:00 Intake Total 1440 ml Output Total 500 ml Balance 940 ml Laboratory Data 24H LABS Laboratory Tests 2 05/21/16 05:14: Activated Partial Thromboplast Time 41.1H, Anion Gap 10, Blood Urea Nitrogen 14 , Creatinine 1.07, Sodium Level 136, Potassium Level 3.8, Chloride Level 99, Carbon Dioxide Level 27, Calcium Level 8.2L, Glomerular Filtration Rate > 60.0, Lactate Dehydrogenase 243H, Prothromb Time International Ratio 1.21, Prothrombin Time 15.4H 05/21/16 12:02: Body Fluid Albumin 2.7, Body Fluid Amylase 21, Body Fluid Cholesterol 63, Body Fluid Glucose 93, Body Fluid Lactate Dehydrogenase 213, Body Fluid Lymphocytes 57, Body Fluid Monocytes/Macrophages 20, Body Fluid Neutrophils 23, Body Fluid Source PLEURAL, Body Fluid Total Protein 4.7, Body Fluid Triglycerides 32, Body Fluid pH 7.652, Pleural Fluid Appearance HAZY, Pleural Fluid Color PALE YELLOW, Pleural Fluid RBC (Auto) < 10, Pleural Fluid Source PLEURAL, Pleural Fluid Total Nucleated Cells 703H CBC/BMP Laboratory Tests 05/21/16 05:14 Calcium Level 8.2 L, Red Blood Count 3.62 L, Mean Corpuscular Volume 90.6, Mean Corpuscular Hemoglobin 29.6, Mean Corpuscular Hemoglobin Concent 32.6, Red Cell Distribution Width 13.2 Microbiology Microbiology 05/18/16 Blood Culture - Preliminary, Resulted No Growth after 48 hours. All Specime... 05/18/16 Blood Culture - Preliminary, Resulted No Growth after 48 hours. All Specime... 05/21/16 Acid Fast Stain, Received Pending 05/21/16 Mycobacterial Culture, Received Pending 05/21/16 Fungal Smear, Received Pending 05/21/16 Fungal Culture, Received Pending 05/21/16 Gram Stain - Final, Resulted 05/21/16 Body Fluid Culture, Resulted Pending 05/21/16 Anaerobic Culture, Resulted Pending 05/18/16 Respiratory Virus Panel (PCR) (AMISHA) - Final, Complete YUE MELGAR DO May 21, 2016 16:00
--- NOTE | 2016-05-21 16:45 | REP ---
ULTRASOUND GUIDED THORACENTESIS: The procedure was performed under the direct supervision of Dr. Carrion. The risks and benefits of the procedure were explained to the patient and informed consent was obtained. The right pleural effusion was localized in the left flank using ultrasound guidance. The skin was prepped and draped in a sterile fashion. 1% Lidocaine was used as a local anesthetic. An 8-Mongolian [id number] catheter was inserted using trocar technique. 1200 mL of johnny colored fluid was withdrawn and sent to the lab. The patient tolerated the procedure well and there were no immediate complications. Reviewed by FRANCISCA Enriquez 05/23/2016 08:26 AEdited and Signed by Dillon Carrion MD 05/23/2016 06:13 P
[2016-05-21] MEDS: LevoFLOXacin 750 MG TABLET PO SCH (17:48)
--- NOTE | 2016-05-21 18:32 | ECGEPIP ---
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 ARTIFACT NOTED ON THE BASELINE MODERATE INTRAVENTRICULAR CONDUCTION DELAY NONSPECIFIC ST & T-WAVE ABNORMALITY COMPARED TO THE LAST TRACING IN THE SYSTEM ON 05/20/2016 AT 17:43:28 Electronically Signed On 05-21-2016 18:31:39 EDT by Kael Sidhu
[2016-05-21] MEDS: SYMBICORT 80/4.5MCG INHALER 6GM INH SCH (19:46)
[2016-05-21] MEDS: ALBUTEROL SULFATE 2.5 MG/0.5 ML INH NEB SOLN INH SCH ×2 (19:54→23:33)
--- NOTE | 2016-05-21 20:38 | CR ---
DATE OF CONSULTATION: 05/21/2016 CARDIOLOGY CONSULTATION REFERRING PHYSICIAN: Dr. Kirill Wilson. INDICATION: Paroxysmal supraventricular tachycardia (PSVT). 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 He is also known to have been a heavy smoker up to four packs per day with chronic wheezy bronchitis and metastatic lung cancer (adenocarcinoma) treated with radiation and chemotherapy in March 2010. 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 Last seen in my office November 23, 2015, and claims to have been fairly stable at that time, walking short distances at his own pace ultimately limited by shortness of breath. Denied having any chest pain, palpitations, dizziness, embolic phenomenon or claudication. His vital signs showed a heart rate of 64 beats per minute that was regular, blood pressure 120/70 sitting, respiratory rate 18, weight 176 pounds. There was good air entry over both lung ulloa with no inspiratory rales but somewhat prolonged expiration but no audible wheeze. He had 1 mm pitting edema of his distal right lower leg and only plus/minus on the left with saphenous vein donor site incision from his prior bypass surgery on the right. Electrocardiogram (EKG) showed sinus rhythm at 63 beats per minute. According to the , he has been not feeling well for at least a month with reduced appetite and gradually worsening effort dyspnea. He had been especially having a problem the past two weeks with intermittent orthopnea and nocturnal dyspnea. Had a productive cough of yellowish sputum. Presented to his primary physician earlier this past week and was given an antibiotic that appeared to improve the color of his sputum but did not change his shortness of breath. Because of his ongoing problems, his took his heart rate and blood pressure and found his rate to be 128 beats per minute. He presented to the emergency room approximation 3 p.m., and initial vital signs showed a pulse rate of 118 beats per minute, O2 saturation 93% and initial blood pressure recorded 120/74 with heart rate 124 beats per minute. His EKG showed a junctional tachycardia at 120 beats per minute (BPM). This would increase to 125 beats per minute. Chest x-ray showed a left lung apex pleural parenchymal opacity which was unchanged from prior study October 28, 2014, with retraction of the left hilus upward. There was some interstitial fibrosis of the left lung and to a lesser extent, the right lung. There was also partial blunting of the left pleural angle. Heart was not deemed to be enlarged. Pulmonary vasculature appeared to be slightly more prominent on the right side. His blood work showed a normal white blood cell count but sedimentation rate was elevated at 85. In light of suspected primary respiratory tract infection triggering his rhythm disturbance, he was admitted by the hospitalist service and cardiology consult was requested. I recommended the use of low-dose intravenous (IV) metoprolol in hopes of obtaining a heart rate of less than 100 with his known prior coronary disease. He had been on amoxicillin as an outpatient and this was switched to levofloxacin. Until I had an opportunity to see him today, I had been monitoring his EKGs which have shown ongoing junctional rhythm/junctional tachycardias, but his blood pressure has not been good enough to receive his customary beta-jin therapy. I started him on amiodarone 200 mg by mouth four times a day on 05/19/2016, which has successfully slow his junctional tachycardia and now restored a sinus rhythm. The patient himself has not been aware of any rhythm disturbance. He does not feel his heart race. Associated with his increasing shortness of breath, productive cough, he has had migratory chest discomfort/aching with respiratory variation and also positional variation. No typical effort-related chest pressure. Serial Troponin I levels were measured and have been consistently the same at 0.3 to 0.4. Associated with his increasing respiratory distress, anorexia and productive cough, has had worsening weakness. Describes at least a five-pound weight loss in the past week. No hemoptysis. Intermittent positional lightheadedness/faintness with visual disturbance. No lateralizing neurological deficit. No worsening lower leg swelling and no claudication. Has had a history of intermittent nocturnal leg cramps and had stopped his pravastatin without change in this symptom. KNOWN PAST CARDIAC DISEASE/EVENTS/TESTS: February 2000: Acute inferior wall myocardial infarction/right coronary artery (RCA) stenting. January 28, 2001: Abnormal stress study/cardiac catheterization showed localized inferior septal hypokinesis with left ventricular ejection fraction (LVEF) that was preserved at 65%. Left ventricle end-diastolic pressure was 14 mmHg. He had severe triple-vessel coronary disease with intrastent stenosis of his right coronary artery stent. Had a 90% proximal left anterior descending (LAD), 90% proximal circumflex, the intrastent RCA stenosis, and a 90% posterior descending artery stenosis. January 28, 2001: Underwent coronary artery bypass graft (CABG) times six - left internal mammary artery (HUMPHREY) to LAD, right radial artery graft to his first obtuse marginal and sequential to second obtuse marginal with sequential saphenous vein graft to the RCA and the posterior descending artery (PDA). Procedure complicated by mediastinal hemorrhage. Last regadenoson stress heart scan 05/31/2014, showed no inducible chest pain or EKG change, proximal inferoseptal hypokinesis, yet preserved global systolic function with LVEF of 59% with perfusion images showing a fixed inferior defect in keeping with his known prior infarction. June 27, 2015: Last echocardiogram showed borderline left ventricle hypertrophy with proximal inferoseptal hypokinesis, LVEF of 55%, mildly dilated left atrium with impairment of LV diastolic relaxation but normal mean left atrial pressure. Right heart chambers were normal with no more than borderline pulmonary hypertension. Moderate aortic valvular sclerosis with mild - moderate insufficiency. Moderate mitral annular calcification with moderate insufficiency. CORONARY RISK FACTORS: Advanced age. Male gender. Prior extremely long smoking history up to four packs per day since the age of 15, quitting in 1999 with his infarction. Hypercholesterolemia with prior intolerance of atorvastatin on low-dose pravastatin. Longstanding hypertension. Prior weight problem. Family history of premature coronary heart disease. No history of diabetes mellitus or symptomatic carotid vascular disease (carotid ultrasound November 2010, showed carotid plaques but no significant obstruction and normal antegrade to vertical artery flow.) OTHER PAST MEDICAL/SURGICAL HISTORY: Tonsillectomy 1948. Bilateral cataract extraction May 2009. Cancer of the lung (adenocarcinoma) March 2010, post radiation and chemotherapy. February 2015, metastasis to the spine treated with radiation. November 2013, underwent emergency cervical spine surgery due to collapse vertebra. Gastroesophageal reflux disease. Prior endoscopies. Smoking-induced chronic bronchitis. Glaucoma. Peripheral neuropathy. Degenerative joint disease. REVIEW OF SYSTEMS: As mentioned has had increasing fatigue and weight loss, vague fevers and productive cough with increasing shortness of breath as mentioned above. Wears corrective lenses for reading. Has reduced auditory acuity. Anorexia but no recent dysphagia or abdominal pains. No gastrointestinal (GI) bleeding. History of prostatism with nocturia three times nightly. No dysuria or hematuria. History of arthralgia. Occasional nocturnal leg cramps. Paresthesia of his feet but no other lateralizing neurological deficit. All other systems review was negative. MEDICATIONS: At home, he had been taking: - low-dose aspirin 81 mg daily - nitroglycerin on an as-needed basis but had not needed this - Symbicort 80/4.5 two puffs twice a day as needed - albuterol inhaler two puffs four times a day as needed - gabapentin 300 mg three times a day - fish oil 1200 mg daily - hydrocodone/acetaminophen 5/325 mg 1-2 tablets every six hours as needed for pain - multivitamin - folic acid 1 mg daily ALLERGIES/INTOLERANCES: 1. Myalgia with ATORVASTATIN. 2. Cough with ANGIOTENSION-CONVERTING ENZYME (JAYY) inhibition. ADVANCE DIRECTIVES: Has a healthcare proxy. PHYSICAL EXAMINATION: CONSTITUTIONAL: Pleasant elderly male with somewhat sharon complexion, medium body build but barrel-chested. Currently has a very raspy respiration and coughing frequently. No pallor or cyanosis wearing supplemental oxygen by nasal prongs. VITAL SIGNS: Heart rate currently 84 beats per minute and regular, blood pressure 104/58 supine, dropping to 90/45 sitting with legs dependent, respiratory rate 20 per minute with O2 saturation 96% on supplemental oxygen by nasal prongs at two liters. Afebrile. Weight 168 pounds, height 66 inches, body mass index (BMI) 27 (had lost eight pounds since his visit with us November 2015. EYES: Normal conjunctivae and lids without pallor or icterus or petechial eruption. No xanthelasma. ENT/MOUTH: Normal oral moisture. No central cyanosis. Wears dentures. NECK: Trachea midline. Thyroid not enlarged. Jugular veins appear to be 3 cm above the sternal angle. RESPIRATORY: Increased anteroposterior chest diameter with well-healed sternotomy incision. Has fairly coarse inspiratory and expiratory rales upper and lower lobes with bilateral lower lobe dullness. Bandage over thoracotomy site right side posteriorly. CARDIOVASCULAR: Apical impulse not palpable. Heart sounds somewhat difficult to hear in light of his pulmonary adventitious sounds. Unable to detect a gallop at this time. Has a systolic murmur along the left sternal border and right base. No audible diastolic murmur. Normal carotid upstrokes and volume with no bruits. Upper extremity pulses and femoral pulses were normal. Abdominal aorta was not palpable. No bruits. Pedal pulses were symmetrically decreased. No more than plus/minus pitting edema of his distal right lower leg, the site of his prior saphenous vein donor site. EXTREMITIES: No clubbing, peripheral cyanosis or splinter hemorrhages. GI: Soft, nontender abdomen with no hepatosplenomegaly. Normal bowel sounds. Rectal examination not indicated. MUSCULOSKELETAL: We did not test his ambulation at this time. No obvious joint deformities. Some proximal muscle weakness but normal tone. Normal spine curvature. NEUROLOGIC/PSYCHIATRIC: Bright, alert and oriented, gave a fairly lucid history substantiated by his . Normal eye, facial, and extremity movements. No abnormal movements. Affect was normal. INVESTIGATIONS: CHEST X-RAY: Portable upright study from his admission 05/18/2016, was reviewed independently and did not appear to show cardiomegaly given this technique. His mediastinum was somewhat tethered to the left chest following his prior radiation therapy. Opacification of his left upper lung apex but otherwise left lung with fairly clear. Obvious sternotomy wire sutures. The right lung showed fairly normal pulmonary vasculature with infiltrates in the right mid and lower lobe. Blunted right costophrenic angle. Chest CT angiogram on his admission was also reviewed independently. This showed obvious atherosclerotic changes of his thoracic aorta. His pulmonary trunk was mildly dilated at 2.9 cm. There was no apparent evidence of pulmonary embolism. Saphenous bypass grafts could be visualized extending from his aorta to [place] coronary arteries. Left ventricle appeared to be normal in size and left atrium was upper limits of normal in size. His right ventricle was normal in size. Right atrium normal in size with inferior vena cava measuring 1.9 cm within normal limits. He had an obvious right pleural effusion with large right perihilar and suprahilar mass. Extensive right hilar adenopathy. Marked volume loss on the left upper lobe with left apical consolidation related to his prior radiation therapy. ECHOCARDIOGRAM: Study performed the day after his admission, 05/19/2016, showed mild concentric left ventricle hypertrophy with inferoseptal hypokinesis and no more than mild impairment of global left ventricular systolic function, LVEF 45-50%, mildly dilated left atrium with Doppler evidence of an impairment of LV diastolic function with mildly elevated mean left atrial pressure. Normal right heart chamber sizes and motion with borderline increased pulmonary arterial pressure. Normal IVC size and collapse against an elevated central venous pressure. Marginal calcific aortic stenosis with very mild insufficiency and mild to moderate mitral annular calcification without inflow tract obstruction and only mild insufficiency. There was no pericardial effusion or intracardiac mass. EKGs: Initial study May 18 at 3 p.m., showed ectopic atrial tachycardia with rate averaging 120 beats per minute. Evidence of prior inferior wall myocardial infarction (IWMI) and nonspecific inferolateral ST/ T-wave abnormalities that was slightly more prominent than his tracing in our office from November 2015. Followup tracing after IV metoprolol showed sinus rhythm at 76 beats per minute but was otherwise unchanged. Had recurrent junctional tachycardia and was started on amiodarone. EKG currently shows sinus rhythm at 83 beats per minute, left atrial conduction disturbance, incomplete right bundle branch block pattern with prior inferior myocardial infarction. ST/ T-wave abnormalities. Perhaps slightly less than even yesterday's tracings. LABORATORY DATA: Hemoglobin has been at least mildly low at 11.5 on admission and is currently 10.7. White blood cell counts have been normal all along. Normal platelet counts. Sedimentation rate elevated at 85 as mentioned. Admission PT / INR was 15.4/1.2 with slightly elevated PTT of 41. Admission chemistry confirmed electrolyte balance with normal renal function and random glucose of 105. Serum calcium and magnesium levels were normal. Ultra sensitive TSH was elevated at 31.6 with low free thyroxine level. Serial CPK totals have been normal. Serial Troponin I levels in an indeterminate and unchanging pattern 0.3-0.4. C-reactive protein was quite elevated 12.6. BNP level was normal at 84. Albumin was normal at 3.3. Liver function studies were slightly abnormal showing an SGOT of 45, but normal alkaline phosphatase. IMPRESSION/PLAN: 1. Paroxysmal supraventricular tachycardia: Well-documented ectopic atrial tachycardia and only briefly responded to IV beta jin therapy. Currently on amiodarone antiarrhythmic therapy in light of his lung disease and soft blood pressures. This has effectively restored a sinus mechanism and appears to be tolerated reasonably well. I have no doubt that his rhythm disturbance is directly related to his suspected recurrent lung cancer, with possible involvement of cardiac structures as well as possible acute on chronic bronchitis. I would recommend monitoring him for least five days with his amiodarone loading prior to discharging him home on a reduced dose of 200 mg twice a day temporarily. His ultra sensitive thyroid stimulating hormone (TSH) on admission was elevated and especially with the introduction of amiodarone warrants thyroid replacement therapy. I have prescribed levothyroxine 50 mcg daily. Especially with the introduction of amiodarone. We will watch his thyroid function with you. 2. Chest pain (precordial): From his description there are appear to be obvious nonanginal features that would allow us to safely rule out myocardial ischemia as the origin of these pleuritic and positional distresses. I have no doubt they are related to his intrathoracic disease/malignancy. Symptomatic therapy would be recommended. 3. Abnormal electrocardiogram (EKG): Has had features in keeping with his known prior infarction and hypertension; i.e., left atrial conduction disturbance, prominent precordial voltage and repolarization abnormalities. These were aggravated by his tachycardia but currently are back to a normal appearance. 4. Coronary artery disease ([place] vessel)/prior inferior wall myocardial infarction/post coronary artery bypass graft (CABG): Has been apparently free of symptomatic myocardial ischemia off beta jin, JAYY inhibitor and only on low-dose pravastatin which he stopped and low-dose aspirin. Serial Troponin I levels have been at an indeterminate range - I wonder whether these may well be paraneoplastic abnormalities. Certainly not characteristic of any ischemic or acute coronary syndrome. 5. Hypertensive heart disease (benign without heart failure): Has had a history of at least mild hypertensive heart disease but has not required diuretic therapy. Current blood pressure is quite soft. There is no pulsus paradoxus, and both CT and echo failed to show pericardial effusion. His shortness of breath is primarily believed to be related to his pulmonary disease (COPD - acute on chronic bronchitis and recurrent malignancy). With his raspy airway sounds and sputum production, I have requested that he receive his customary Symbicort and albuterol nebulizer therapy on a regular basis. Obviously he remains off any antihypertensive therapy. Has normal renal function and brain natriuretic peptide (BNP) level that is also normal. 5. Mitral and aortic valve disorder (nonrheumatic): Recent echocardiographic study does show a marginal calcific aortic stenosis with mild insufficiency. Mitral annular calcification with mild insufficiency. No hemodynamically significant valvular problem and no symptoms or signs to suggest endocarditis. We will follow this complicated patient with you but, unfortunately, suspect his prognosis to be extremely guarded with his recurrent adenocarcinoma with fairly large mass in his chest measuring 8 cm x 5 cm.
[2016-05-21] MEDS: PRAVASTATIN 20 MG TAB PO SCH (21:59)
[2016-05-22 00:26] VITALS: BP 111/57
[2016-05-22] MEDS: ALBUTEROL SULFATE 2.5 MG/0.5 ML INH NEB SOLN INH SCH ×5 (03:24→20:00)
[2016-05-22 05:00] VITALS: BP 114/57
[2016-05-22] MEDS: ALBUTEROL 90 MCG/ACT 8GM HFA INHALER INH PRN ×2 (05:04→05:05)
[2016-05-22 05:44] LABS: MEAN CORPUSCULAR HEMOGLOBIN 29.4 pg (27.0-33.0); MEAN CORPUSCULAR HGB CONC 32.7 g/dl (32.0-36.5); RED CELL DISTRIBUTION WIDTH 12.9 % (11.5-14.5); WHITE BLOOD COUNT 10.4 K/mm3 (4.0-10.0)
[2016-05-22] MEDS: SLF 3 ML SYR IV SCH ×3 (05:44→20:33)
[2016-05-22] MEDS: LEVOTHYROXINE 0.05 MG TAB (50 MCG) PO SCH (05:44)
[2016-05-22 05:53] LABS: ANION GAP 11 MEQ/L (8-16); BLOOD UREA NITROGEN 15 MG/DL (7-18); CALCIUM LEVEL 8.1 MG/DL (8.8-10.2); CARBON DIOXIDE LEVEL 26 MEQ/L (21-32); CHLORIDE LEVEL 98 MEQ/L (98-107); CREATININE FOR GFR 1.09 MG/DL (0.70-1.30); GLOMERULAR FILTRATION RATE > 60.0 (>42); GLUCOSE, FASTING 108 MG/DL (83-110); SODIUM LEVEL 135 MEQ/L (136-145)
[2016-05-22] MEDS: SYMBICORT 80/4.5MCG INHALER 6GM INH SCH (07:30)
[2016-05-22 08:07] VITALS: BP 102/55
[2016-05-22] MEDS: FOLIC ACID 1 MG TAB PO SCH (09:12)
[2016-05-22] MEDS: AMIODARONE 200 MG TAB (PACERONE) PO SCH ×4 (09:12→20:32)
[2016-05-22] MEDS: ASPIRIN 81 MG ENTERIC TAB PO SCH (09:12)
[2016-05-22] MEDS: GABAPENTIN 300 MG CAP PO SCH ×2 (09:12→20:33)
[2016-05-22] MEDS: ENOXAPARIN 40 MG/0.4 ML SYRINGE (J1650) SC SCH (09:14)
--- NOTE | 2016-05-22 11:00 | IPNPDOC ---
Text Note Date of Service The patient was seen on 05/22/16. NOTE Cardiology Progress Note Subjective: Patient is a 75-year-old male with paroxysmal supraventricular tachycardia seen for cardiology follow-up. Patient has not had any abnormal cardiac rhythms overnight. He reports that he is feeling about the same as he was yesterday. His breathing is no better or worse. He denies any fevers, chills, sweats, chest pain/pressure, palpitations or lower extremity swelling. Objective: Vital signs: Temperature 96.8, pulse 92, sinus rhythm on surveillance system monitor, respiratory rate 20, blood pressure 102/55, pulse ox 95% on 2 L nasal cannula Gen.: Patient awake, alert and oriented, verbal and able to answer questions appropriately. Patient does not appear to be in any acute distress Neck: no JVD Heart: Regular rate and rhythm, normal S1-S2. Occasional skipped beat. 3/6 systolic murmur best heard at left sternal border. No rubs, clicks or gallops Lungs: Bilateral wheezes and rhonchi to auscultation Extremities: No swelling in either lower extremity Laboratory data: CBC: White blood cells 10.4, hemoglobin and hematocrit 10.9/33.5, platelets 345 Chemistry: Sodium 135, potassium 4.0, chloride 98, carbon dioxide 26, BUN 15, creatinine 1.09, glucose 108, calcium 8.1 Microbiology: Blood culture 2: No growth after 72 hours Pleural fluid: Few white blood cells, no organisms, culture pending Imaging: Chest CT: Read by radiology pending Assessment: Patient is a 75-year-old male with known lung adenocarcinoma, paroxysmal supraventricular tachycardia, recently started on amiodarone. Plan: #1: Paroxysmal supraventricular tachycardia: Likely secondary to underlying lung cancer. Patient sinus rhythm on monitor today with no abnormal rhythms overnight. He will continue on loading dose of amiodarone 200 mg by mouth 4 times a day through 05/23, then on 05/24 dose will be decreased to 200 mg by mouth twice a day #2: Elevated TSH: Patient will continue on Synthroid 50 mcg by mouth daily #3: Precordial chest pain: Resolved, patient not complaining of chest pain on examination today #4: Coronary artery disease: Patient status post inferior wall AK, coronary artery bypass graft: Patient not complaining of any chest pain on examination today #5: Hypertensive heart disease without heart failure: Currently not on any anti- hypertensives, blood pressures remain soft. Continue to monitor #6: Mitral and aortic valve disorder: Stable, no further evaluation My preceptor for this patient encounter was physically present in the building during the encounter and was fully available. As needed, all aspects of the patient interview, examination, medical decision making process, and medical care plan development were reviewed and approved by the preceptor. Preceptor is aware and concurs with the plan as stated in the body of this note and will attest to such by his/her cosignature Clifford DE OLIVEIRA, I+O VSClifford I+O Laboratory Tests 05/22/16 05:29 Calcium Level 8.1 L, Red Blood Count 3.71 L, Mean Corpuscular Volume 90.0, Mean Corpuscular Hemoglobin 29.4, Mean Corpuscular Hemoglobin Concent 32.7, Red Cell Distribution Width 12.9 Vital Signs Date Time Temp Pulse Resp B/P Pulse Ox O2 Delivery O2 Flow Rate FiO2 05/22/16 08:15 Nasal Cannula 2.0 05/22/16 08:07 96.8 92 20 102/55 95 I&O- Last 24 Hours up to 6 AM 05/22/16 06:00 Intake Total 480 ml Output Total 510 ml Balance -30 ml DAYANA GRANADOS DO May 22, 2016 11:00
--- NOTE | 2016-05-22 11:20 | REP ---
CT study of the chest without contrast: History: Follow up infiltrate post thoracentesis. Comparison study May 20, 2016. Comparison study from November 24, [address] findings: The patient is status post right thoracentesis and the right pleural effusion is improved compared with the recent prior study of May 20, 2016. There is some residual right pleural fluid. There is no evidence of pneumothorax. There is chronic collapse with air bronchograms in the left upper lobe as before. There are patchy areas of interstitial and alveolar opacity in the left base and lingula consistent with infiltrate. These are a little more prominent than on the May 20, 2016 study. The previously noted posteromedial mass in the right upper lobe is again seen today measuring 4.0 cm in AP dimension, 2.6 cm on November 24, 2015. This has progressed. There is also a mass-like consolidation in the posteromedial aspect of the right lower lobe. This is new from November 2015 but unchanged from May 20, 2016. This area measures approximately 5-1/2 cm in greatest dimension. There is a rounded fullness to the right hilar border which is felt to reflect the adenopathy seen on the recent prior CT. There is a somewhat irregular nodule in the right middle lobe on today's CT study just below the minor fissure measuring 11 mm in greatest diameter. There are areas of pleural thickening and some fibrotic change in the right middle lobe. There is a 6 mm irregular nodule in the right upper lobe which is new from November 2015. The previously noted irregular small mass in the right lower lobe is again seen centrally. This measures 2.3 x 1.3 cm, previously 2.6 x 0.9 cm. There is an infiltrate in the right lower lobe posteriorly consistent with pneumonia perhaps postobstructive. There is bronchial narrowing in the infrahilar region in the segmental bronchi. Some narrowing is seen in the right middle lobe bronchi as well. No bony destructive lesion is appreciated. Impression: Findings compatible with progressive right hilar, right upper lobe, and right lower lobe pulmonary malignancy with infiltrate in the right lower lobe and posteriorly in the right upper lobe which may reflect postobstructive pneumonia. Decreased right pleural effusion now small. Chronic changes on the left with patchy new areas of interstitial and alveolar infiltrate. This could reflect pneumonia versus lymphangitic spread. There are new nodular densities in the right middle lobe and one in the right upper lobe. Signed by Dillon Carrion MD 05/22/2016:09 P
[2016-05-22 12:00] VITALS: BP 122/65
--- NOTE | 2016-05-22 14:48 | IPN ---
DATE: 05/22/2016 CARDIOLOGY PROGRESS NOTE SUBJECTIVE: Today, feels less short of breath but still has a raspy cough with difficulty expectorating. Has remained free of palpitations or faintness. No chest pain. Tolerating amiodarone without adverse effect. OBJECTIVE: Pleasant elderly male of medium body build, slightly barrel-chested, lay comfortably with the head of bed elevated 45 degrees. Very raspy respirations continue, similar to yesterday despite being restarted on Symbicort and albuterol. Heart rate 88 bpm and regular, blood pressure 120/60, respiratory rate 20 per minute, O2 saturation 96% on supplemental oxygen by nasal prongs at 2 liters. Afebrile. His weight is slightly down from yesterday. Neck veins remain normal in position. Still has coarse inspiratory and expiratory rales diffusely. [place] not palpable, heart sounds difficult to hear because of his lung sounds. No current pitting edema. 1. 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 His rhythm has been quite regular and sinus. 2. Chest pain (precordial): No further distress. No further Troponin I level was performed or EKG. 3. Abnormal EKG: No followup study today. 4. Coronary artery disease ([place] vessel)/prior IWMI/post coronary artery bypass grafting (CABG): Remains on protective combination pravastatin, low molecular weight heparin, and aspirin antiplatelet therapy. Beta-jin and JAYY inhibition is somewhat contraindicated. 5. Hypertensive heart disease (benign without heart failure): Current blood pressure is actually somewhat improved from yesterday. Renal function remains normal. 6. Mitral and aortic valve disorder (nonrheumatic): With his coarse pulmonary adventitious sounds it is hard to hear any cardiac sounds. Does have an audible systolic murmur related to his marginal calcific aortic stenosis. I will continue with his amiodarone loading. So far is tolerating this without adverse effect and it is effectively preventing his atrial tachycardia so far. MTDD
[2016-05-22 16:00] VITALS: BP 103/54
[2016-05-22] MEDS ORDERED: CEPACOL LOZENGE PO PRN (17:45)
[2016-05-22] MEDS: LevoFLOXacin 750 MG TABLET PO SCH (17:54)
[2016-05-22] MEDS: SYMBICORT 160/4.5MCG INHALER 6GM INH SCH (19:21)
[2016-05-22 20:25] VITALS: BP 123/63
[2016-05-22] MEDS: PRAVASTATIN 20 MG TAB PO SCH (20:32)
[2016-05-22] MEDS: NORCO, ANEXSIA 5/325MG TABLET (HYDROcodone/ACETAMINOPHEN) PO PRN (20:33)
[2016-05-23] MEDS: ALBUTEROL SULFATE 2.5 MG/0.5 ML INH NEB SOLN INH SCH ×7 (00:05→23:06)
[2016-05-23 00:16] VITALS: BP 125/60
[2016-05-23 04:48] VITALS: BP 118/55
[2016-05-23] MEDS: LEVOTHYROXINE 0.05 MG TAB (50 MCG) PO SCH (06:14)
[2016-05-23] MEDS: SLF 3 ML SYR IV SCH ×3 (06:15→22:00)
[2016-05-23 06:20] LABS: MEAN CORPUSCULAR HEMOGLOBIN 29.5 pg (27.0-33.0); MEAN CORPUSCULAR HGB CONC 33.1 g/dl (32.0-36.5); RED CELL DISTRIBUTION WIDTH 13.1 % (11.5-14.5); WHITE BLOOD COUNT 13.3 K/mm3 (4.0-10.0)
[2016-05-23 06:22] LABS: ANION GAP 9 MEQ/L (8-16); BLOOD UREA NITROGEN 16 MG/DL (7-18); CALCIUM LEVEL 8.2 MG/DL (8.8-10.2); CARBON DIOXIDE LEVEL 27 MEQ/L (21-32); CHLORIDE LEVEL 98 MEQ/L (98-107); CREATININE FOR GFR 1.03 MG/DL (0.70-1.30); GLOMERULAR FILTRATION RATE > 60.0 (>42); GLUCOSE, FASTING 102 MG/DL (83-110); POTASSIUM SERUM 3.8 MEQ/L (3.5-5.1); SODIUM LEVEL 134 MEQ/L (136-145)
[2016-05-23 08:00] VITALS: BP 109/60
[2016-05-23] MEDS: SYMBICORT 160/4.5MCG INHALER 6GM INH SCH ×2 (08:09→19:20)
--- NOTE | 2016-05-23 09:10 | IPNPDOC ---
Subjective Date Seen The patient was seen on 05/23/16. Subjective Chief Complaint/HPI The patient is a 75-year-old male admitted with a reason for visit of SOB. Constitutional: Reports: Fatigue, Fever Pulmonary: Reports: Cough, Pleuritic Chest Pain (RIGHT SIDED ) Gastrointestinal: Denies: Abdominal Pain, Vomiting Hematologic: Denies: Bleeding Excessively, Purpura Objective Physical Examination General Exam: Positive: Alert, No Acute Distress ENT Exam: Positive: Mucous membr. moist/pink Neck Exam: Positive: Supple Chest Exam: Positive: Diminished, Rhonchi (bilateral. breath sounds heard better in right base than before thoracentesis) Heart Exam: Positive: Normal S1, Rate Normal Abdomen Exam: Positive: Normal bowel sounds, Soft, Negative: Tenderness Psych Exam: Positive: Mood NL, Oriented x 3 Assessment /Plan Problems (1) Junctional tachycardia Status: Acute Discussed With: Moss Bleacher, Patient, Family with Pt Consent Problem Specific Plan: Consult Specialist, Monitor Clinically, Repeat Labs Problem Text: 05/23Heart rate controlled. 5 days on amiodarone at current dose, bid after 05/21 -- heart rate in the 80s at time of exam. 05/20 - Rate remains mostly 110s, on Amio. 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 05/19 Dr Donato has been consulted, he has spoken with Dr Jason. Rec starting Amio, which has been ordered. 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 Consult Dr. Manzano requested. 05/21 -- Thoracentesis performed today, labs pending. Dr. Macias consulted. Will attempt to titrate O2. 05/20 - CT chest, A & P just done. Pt has seen Dr Macias in the past, will need consult for her recommendation on proceeding with investigation of the mass. 05/19 Pt has a h/o of adenocarcinoma of the lung, he has followed with Dr Weber for this, he has undergone chemotherapy with palliative Radiation therapy per the Onc notes. Last CT done 11/24 with relatively stable nodules. Will obtain CT with contrast of the chest, A & P. This is likely the source of his cough and SOB. Will request consult Dr. Macias, whom he has seen before. (3) History of adenocarcinoma of lung Status: Chronic Problem Specific Plan: Consult Specialist, Monitor Clinically Problem Text: See above. (4) CAD (coronary artery disease) of artery bypass graft Status: Chronic Problem Specific Plan: Monitor Clinically Problem Text: Cont with ASA, statin. Cardio follow. Plan/VTE VTE Prophylaxis Ordered?: Yes Plan Advance Directives: HCP Disposition New MOLST completed, DNR/DNI, may use non-invasive ventilator VS, I&O, 24H, Fishbone Vital Signs/I&O Vital Signs Date Time Temp Pulse Resp B/P Pulse Ox O2 Delivery O2 Flow Rate FiO2 05/23/16 08:00 98.2 89 18 109/60 92 Nasal Cannula 2.0 I&O- Last 24 Hours up to 6 AM 05/23/16 06:00 Intake Total 360 ml Output Total 350 ml Balance 10 ml Laboratory Data 24H LABS Laboratory Tests 2 05/23/16 05:51: Anion Gap 9, Blood Urea Nitrogen 16, Creatinine 1.03, Sodium Level 134L, Potassium Level 3.8, Chloride Level 98, Carbon Dioxide Level 27, Calcium Level 8.2L, Glomerular Filtration Rate > 60.0 CBC/BMP Laboratory Tests 05/23/16 05:51 Calcium Level 8.2 L, Red Blood Count 3.55 L, Mean Corpuscular Volume 89.0, Mean Corpuscular Hemoglobin 29.5, Mean Corpuscular Hemoglobin Concent 33.1, Red Cell Distribution Width 13.1 Microbiology Microbiology 05/18/16 Blood Culture - Preliminary, Resulted No Growth after 72 hours. All specime... 05/18/16 Blood Culture - Preliminary, Resulted No Growth after 72 hours. All specime... 05/21/16 Acid Fast Stain, Received Pending 05/21/16 Mycobacterial Culture, Received Pending 05/21/16 Fungal Smear, Received Pending 05/21/16 Fungal Culture, Received Pending 05/21/16 Gram Stain - Final, Complete 05/21/16 Body Fluid Culture - Final, Complete 05/21/16 Anaerobic Culture - Final, Complete 05/18/16 Respiratory Virus Panel (PCR) ([facility]) - Final, Complete Fletcher Jason MD May 23, 2016 09:10
[2016-05-23] MEDS: ENOXAPARIN 40 MG/0.4 ML SYRINGE (J1650) SC SCH (09:39)
[2016-05-23] MEDS: FOLIC ACID 1 MG TAB PO SCH (09:39)
[2016-05-23] MEDS: ASPIRIN 81 MG ENTERIC TAB PO SCH (09:39)
[2016-05-23] MEDS: AMIODARONE 200 MG TAB (PACERONE) PO SCH ×4 (09:39→20:36)
[2016-05-23] MEDS: GABAPENTIN 300 MG CAP PO SCH ×2 (09:39→20:36)
[2016-05-23] MEDS: NORCO, ANEXSIA 5/325MG TABLET (HYDROcodone/ACETAMINOPHEN) PO PRN ×2 (09:52→20:36)
--- NOTE | 2016-05-23 10:44 | REP ---
CHEST X-RAY PA AND LATERAL: 05/23/2016. Clinical history: Pleural effusion. Known lung malignancy. The patient is status post right thoracentesis on 05/21/2016 with 1200 ml removed. Comparison: CT chest 05/22/2016, chest x-ray 05/21/2016, 05/18/2016. Findings: Sternotomy wires are again noted with surgical clips about the left hilum. The patient has had a left lobectomy with volume loss and apical cap unchanged. There is interstitial fibrotic change and streaky density infrahilar region. The right lung shows mass-like opacity about the hilum and suprahilar region as on previous CT. In addition, there is increased patchy airspace opacity as infiltrate or edema since the previous chest x-ray on 05/21. Small effusion suspected. The right upper lung zone shows some fibrotic changes and only nodular interstitial appearance in both upper and lower lung zones. Fullness in the left hilar region with the postoperative changes and elevation of that hilum again noted. The bones show no acute compression deformity. IMPRESSION: 1. Sternotomy wires and evidence of prior lobectomy on the left with volume loss and elevation of the left hilum and an apical cap. 2. Fullness/mass appearance right hilum, infrahilar and suprahilar regions as on CT with increase in the patchy interstitial or alveolar infiltrates/edema in the right base. Nodular interstitial changes in both upper and lower lung zones with small effusion. Signed by Manjinder Eaton MD 05/23/2016 06:36 P
[2016-05-23 12:25] VITALS: BP 105/58
[2016-05-23 14:00] VITALS: BP 136/61
[2016-05-23] MEDS: LevoFLOXacin 750 MG TABLET PO SCH (17:36)
[2016-05-23] MEDS: PRAVASTATIN 20 MG TAB PO SCH (20:35)
[2016-05-23 21:00] VITALS: BP 116/56
[2016-05-23] MEDS ORDERED: FUROSEMIDE 40 MG/4 ML VIAL (J1940) IV ONE (21:15)
[2016-05-23] MEDS: ALBUTEROL SULFATE 2.5 MG/0.5 ML INH NEB SOLN INH PRN (21:58)
[2016-05-24] MEDS: ALBUTEROL SULFATE 2.5 MG/0.5 ML INH NEB SOLN INH SCH ×6 (03:29→23:53)
--- NOTE | 2016-05-24 04:23 | IPN ---
DATE: 05/23/2016 CARDIOLOGY PROGRESS NOTE: SUBJECTIVE: Claims that over the course of the past few hours has had more respiratory distress/air hunger, also reporting a pleuritic right-sided chest discomfort that begins in the front and radiates through to the back. He has not been aware of any palpitations or dizziness. Does not feel feverish. Cough is not productive at this time. OBJECTIVE: Somewhat anxious, elderly male of medium body build, sitting up in the chair with supplemental oxygen with obvious tachypnea but no diaphoresis. Heart rate 88 beats per minute and regular, blood pressure 140/60, respiratory rate 24 per minute, oxygen saturation was last 94% on 2 liters by nasal prongs. Normal oral moisture. Neck veins were below the level of the clavicle with him sitting and has fairly diffuse inspiratory crepitations with prolonged expiration and expiratory wheeze. Has no more than +/- edema of his distal lower legs. Blood work earlier today showed a hemoglobin that is stable at 10.5. White blood cell count had increased to 13.3 thousand from 10.4 thousand yesterday. Chemistry showed slight hyponatremia but other electrolytes were normal, BUN 16, creatinine 1.0, glucose 102. IMPRESSION/PLAN: 1. Chest pain (precordial): He has developed lateralized chest discomfort similar to that he had been experiencing at home prior to his admission that I believe is respiratory/pleural, not cardiac. An EKG has been requested in light of his distress. 2. Dyspnea: Again, this is also believed to be respiratory in origin, but unfortunately his auscultatory findings are a challenge. I reviewed his chest x-ray from earlier today and this actually, if anything looks better than his admission study 05/18/2016. Pulmonary vasculature did not definitely appeared abnormal or accentuated from the prior study. A BNP level has been requested from blood drawn earlier today. His weight in hospital has not increased. 3. Coronary disease ([place] vessel)/prior inferior wall myocardial infarction/post CABG: As mentioned above, his pain does not sound ischemic in nature but an EKG will be obtained as mentioned. Remains on pravastatin and low-dose aspirin. 4. Hypertensive heart disease (benign without heart failure): Current blood pressure slightly higher than earlier. I suspect because of his distress. Chemistry showed electrolyte balance with normal renal function earlier today. 5. Mitral and aortic valve disorder (automatic): Again, with his pulmonary adventitious sounds it is hard to hear any heart murmur, but this is not believed to be significant at this time. 6. Paroxysmal supraventricular tachycardia (PSVT): Currently is on a non monitored floor, but prior to his transfer his EKG showed only sinus rhythm. He is currently on amiodarone four times a day and I plan to continue this until 05/25/2016, and then will reduce the dose to 2 mg twice a day. As mentioned, I have started him on low-dose Synthroid as his baseline ultra sensitive TSH was elevated at 31.6. I understand the patient is aware of his recurrent tumor and has been made DO NOT RESUSCITATE. Oncology has been requested to see him, but I understand his prognosis at this point is very guarded. MTDD
[2016-05-24] MEDS: LEVOTHYROXINE 0.05 MG TAB (50 MCG) PO SCH (05:42)
[2016-05-24] MEDS: SLF 3 ML SYR IV SCH ×3 (05:42→22:00)
[2016-05-24 06:00] VITALS: BP 127/63
[2016-05-24 06:59] LABS: MEAN CORPUSCULAR HEMOGLOBIN 28.8 pg (27.0-33.0); MEAN CORPUSCULAR HGB CONC 32.7 g/dl (32.0-36.5); MEAN CORPUSCULAR VOLUME 88.2 fl (80.0-96.0); RED CELL DISTRIBUTION WIDTH 13.1 % (11.5-14.5)
[2016-05-24 07:16] LABS: ANION GAP 12 MEQ/L (8-16); BLOOD UREA NITROGEN 18 MG/DL (7-18); CALCIUM LEVEL 8.2 MG/DL (8.8-10.2); CARBON DIOXIDE LEVEL 25 MEQ/L (21-32); CHLORIDE LEVEL 94 MEQ/L (98-107); CREATININE FOR GFR 1.15 MG/DL (0.70-1.30); GLOMERULAR FILTRATION RATE > 60.0 (>42); GLUCOSE, FASTING 108 MG/DL (83-110); POTASSIUM SERUM 4.3 MEQ/L (3.5-5.1); SODIUM LEVEL 131 MEQ/L (136-145)
--- NOTE | 2016-05-24 07:58 | IPNPDOC ---
Subjective Date Seen The patient was seen on 05/24/16. Subjective Chief Complaint/HPI The patient is a 75-year-old male admitted with a reason for visit of SOB. Events since last encounter Developed right sided CP overnight. EKG: neg. troponin neg. Oxygen increased to 4LNC. Patient admits to RUSSELL, states CP resolved. feels breathing is unchanged. S /p oncology consult: Dr. Knight. Consult note is pending. Constitutional: Denies: Chills, Fever, Night Sweats ENT: Denies: Dysphagia, Ear Pain, Head Aches Skin: Denies: Breakdown, Lesions, Rash Pulmonary: Denies: Cough, Dyspnea Cardiovascular: Denies: Chest Pain, Lt Headedness, Orthopnea, Palpitations, Paroxysmal Noc. Dyspnea Gastrointestinal: Denies: Abdominal Pain, Constipation, Diarrhea, Nausea, Vomiting Genitourinary: Denies: Dysuria, Frequency, Incontinence, Retention Neurological: Denies: Change in speech, Confusion, Numbness, Weakness Psych: Reports: Mood Normal, Denies: Depression, Memory Issues Objective Physical Examination General Exam: Positive: Alert, No Acute Distress ENT Exam: Positive: Mucous membr. moist/pink Neck Exam: Positive: Supple Chest Exam: Positive: Diminished, Rales (bibasilar), Rhonchi Heart Exam: Positive: Normal S1, Rate Normal Abdomen Exam: Positive: Normal bowel sounds, Soft, Negative: Tenderness Psych Exam: Positive: Mood NL, Oriented x 3 Assessment /Plan Problems (1) Junctional tachycardia Status: Acute Discussed With: Printer Assistant, Patient, Family with Pt Consent Problem Specific Plan: Consult Specialist, Monitor Clinically, Repeat Labs Problem Text: 05/24/16: per cardiology note: Amiodarone to be changed to bid on 05/25/16. Received Lasix 40 mg po over night. Will give another 20 mg now. Placed on fluid restriction. Dr. Donato involved and co-managing. 05/23Heart rate controlled. 5 days on amiodarone at current dose, bid after 05/21 -- heart rate in the 80s at time of exam. 05/20 - Rate remains mostly 110s, on Amio. 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 05/19 Dr Donato has been consulted, he has spoken with Dr Jason. Rec starting Amio, which has been ordered. (2) Mediastinal mass Status: Acute Problem Specific Plan: Monitor Clinically Problem Text: 05/24/16: oncology consult completed. Note pending. 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 Consult Dr. Manzano requested. 05/21 -- Thoracentesis performed today, labs pending. Dr. Macias consulted. Will attempt to titrate O2. 05/20 - CT chest, A & P just done. Pt has seen Dr Macias in the past, will need consult for her recommendation on proceeding with investigation of the mass. 05/19 Pt has a h/o of adenocarcinoma of the lung, he has followed with Dr Weber for this, he has undergone chemotherapy with palliative Radiation therapy per the Onc notes. Last CT done 11/24 with relatively stable nodules. Will obtain CT with contrast of the chest, A & P. This is likely the source of his cough and SOB. Will request consult Dr. Macias, whom he has seen before. (3) History of adenocarcinoma of lung Status: Chronic Problem Specific Plan: Consult Specialist, Monitor Clinically Problem Text: See above. (4) CAD (coronary artery disease) of artery bypass graft Status: Chronic Problem Specific Plan: Monitor Clinically Problem Text: Cont with ASA, statin. Cardio follow. Plan/VTE VTE Prophylaxis Ordered?: Yes Plan Advance Directives: HCP VS, I&O, 24H, Fishbone Vital Signs/I&O Vital Signs Date Time Temp Pulse Resp B/P Pulse Ox O2 Delivery O2 Flow Rate FiO2 05/24/16 06:00 98.4 89 19 127/63 90 Nasal Cannula 4.0 I&O- Last 24 Hours up to 6 AM 05/24/16 06:00 Intake Total 1780 ml Output Total 775 ml Balance 1005 ml Laboratory Data 24H LABS Laboratory Tests 2 05/24/16 06:28: Anion Gap 12, Blood Urea Nitrogen 18, Creatinine 1.15, Sodium Level 131L, Potassium Level 4.3, Chloride Level 94L, Carbon Dioxide Level 25, Calcium Level 8.2L, Glomerular Filtration Rate > 60.0, Troponin I 0.10 CBC/BMP Laboratory Tests 05/24/16 06:28 Calcium Level 8.2 L, Red Blood Count 3.65 L, Mean Corpuscular Volume 88.2, Mean Corpuscular Hemoglobin 28.8, Mean Corpuscular Hemoglobin Concent 32.7, Red Cell Distribution Width 13.1 Microbiology Microbiology 05/18/16 Blood Culture - Final, Complete NO GROWTH AFTER 5 DAYS 05/18/16 Blood Culture - Final, Complete NO GROWTH AFTER 5 DAYS 05/21/16 Acid Fast Stain, Received Pending 05/21/16 Mycobacterial Culture, Received Pending 05/21/16 Fungal Smear, Received Pending 05/21/16 Fungal Culture, Received Pending 05/21/16 Gram Stain - Final, Complete 05/21/16 Body Fluid Culture - Final, Complete 05/21/16 Anaerobic Culture - Final, Complete 05/18/16 Respiratory Virus Panel (PCR) ([facility]) - Final, Complete Attending Note Attending Note Patient and have decided to proceed with Genetic study. His disease severity makes one wonder whether he will have enough time to get these tests back. Low probability that he has appropriate mutation to make Oral med option available. Approx 5% at most, according to Dr. Manzano. Gisselle Pierre May 24, 2016 07:58 Fletcher Jason MD May 24, 2016 13:34
[2016-05-24] MEDS ORDERED: FUROSEMIDE 20 MG/2 ML VIAL (J1940) IV ONE (08:00)
--- NOTE | 2016-05-24 08:04 | CR ---
DATE: 05/23/2016 I was asked by Dr. Fletcher Jason to make medical oncology management recommendations for Mr. Griffin, now diagnosed with recurrent adenocarcinoma of the lung. Patient is a 75-year-old man who in 2010 was found to have a left sided poorly differentiated adenocarcinoma of the lung. I do not have detailed records but he was apparently treated with chemoradiation under Dr. Mason Flores and [facility]. Since 2014, he has had a right-sided opacity on lung imaging. A bronchoscopic biopsy in October 2014 was nondiagnostic. More recently he had progressive shortness of breath and imaging May 18 demonstrated a large, 8 cm x 5 cm suprahilar mass and a large right pleural effusion partially loculated, no evidence of pulmonary embolism, in addition to his extensive right hilar adenopathy. He underwent diagnostic and therapeutic thoracentesis, cell block positive for malignancy, consistent with poorly differentiated adenocarcinoma and also thought to be consistent with the prior lung biopsy from the left side. Abdomen and pelvis CT shows hepatic lesions suspicious for metastatic disease, innumerable lesions with two hepatic dome lesion with peripheral enhancement. I found Mr. Griffin at the bedside eating dinner watching a movie. He was in no obvious distress, very pleasant. He has audible gurgly breath sounds but not tachypneic. I explained he has advanced metastatic likely lung primary carcinoma. This is probably recurrence of his 2011 lung carcinoma. It is not curable and his life expectancy without treatment is less than 6 months. I also explained that standard palliative treatment would be either a targeted therapy in pill form or chemotherapy. His performance status of 3-4 means he is unlikely to be a candidate for chemotherapy. Targeted, pill therapy, depends on tumor testing for EGFR, ALK, or ROS1 mutations. In a patient with a long-term smoking history such as Gen, there is a well below 5% likelihood of uncovering such a mutation. I discussed this with Gen who nevertheless expresses interest in mutation testing. His called during our visit. She is strongly interested in mutation testing. However, when she was off the phone, Gen told me he would like to discuss things further with her in the morning before making any decisions. I reviewed with him the overall fairly poor prognosis of metastatic high volume lung cancer, particularly if there are no targetable mutations. His ECOG performance status is 3 to 4 makes him a poor candidate for IV chemotherapy and if IV chemotherapy is the only potential treatment, I would recommend hospice care. BRIEF LIMITED PHYSICAL EXAM: Vital signs: Temperature 98.4, blood pressure 136/61, heart rate 81, O2 sat 94 on nasal cannula, respiratory rate. Cardiac exam S1, S2, regular rate and rhythm. Distant heart sounds. Lung exam: Coarse, crackly breath sounds throughout the lung ulloa distant. No focal dullness to percussion or auscultation. Extremities: No pedal edema. LABORATORY DATA: WBC 13, hemoglobin 10, hematocrit 31, platelets 363. Calcium 8.2, sodium 134, creatinine 1.03. AST, ALT on this admission within normal limits. 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 ECOG performance status 3 at best. RECOMMENDATIONS: 1. Pending Mr. Griffin's discussion with his Camille tomorrow, I'll hold requesting testing of EGFR, ALK and ROS1. If they strongly wish to go forward with this, we can request it. These results take 10-14 days and in the meantime he could discharge home and see me as an outpatient. To clarify, his poor performance status makes it unlikely he will benefit from palliative IV chemotherapy. So if he does not have a targetable mutation making pill therapy an option, his life expectancy is below 6 months and hospice care would be appropriate. I gave him a card from our nurse navigator, Sarai Goode, and added our medical oncology office number and my name to the card. DURAN
[2016-05-24] MEDS: AMIODARONE 200 MG TAB (PACERONE) PO SCH ×4 (08:11→21:41)
[2016-05-24] MEDS: FOLIC ACID 1 MG TAB PO SCH (08:11)
[2016-05-24] MEDS: ENOXAPARIN 40 MG/0.4 ML SYRINGE (J1650) SC SCH (08:11)
[2016-05-24] MEDS: GABAPENTIN 300 MG CAP PO SCH ×2 (08:11→21:41)
[2016-05-24] MEDS: ASPIRIN 81 MG ENTERIC TAB PO SCH (08:11)
[2016-05-24 08:12] VITALS: BP 122/60
[2016-05-24] MEDS: SYMBICORT 160/4.5MCG INHALER 6GM INH SCH ×2 (08:22→19:55)
[2016-05-24] MEDS ORDERED: FUROSEMIDE 40 MG/4 ML VIAL (J1940) IV SCH (09:00)
[2016-05-24 11:40] VITALS: BP 92/58
--- NOTE | 2016-05-24 11:43 | IPNPDOC ---
Text Note Date of Service The patient was seen on 05/24/16. NOTE Cardiology Progress Note Subjective: Patient is a 75-year-old male with hypertensive heart disease, dyspnea, recurrent lung cancer seen for cardiology follow-up. Patient reports today that he continues to have some shortness of breath and pain in his lung. He denies any fevers, chills, sweats, lower extremity swelling Objective: Vital signs: Temperature 98.4, pulse 87, respiratory rate 18, blood pressure 122 /60, pulse ox 90% on 4 L nasal cannula Input and output for yesterday: Input 1420 mL, output 525 mL, balance +895 mL Gen.: Patient awake, alert and oriented, verbal and able to answer questions appropriately. Patient does not appear to be in any acute distress Neck: no JVD Heart: Regular rate and rhythm, unable to appreciate any adventitious heart sounds secondary to lung sounds Lungs: Bilateral rhonchi and wheezing to auscultation Extremities: No swelling in either lower extremity Laboratory data: CBC: White blood cells 15.0, hemoglobin and hematocrit 10.5/32.2, platelet is 363 Chemistry: Sodium 131, potassium 4.3, chloride 94, carbon dioxide 25, BUN 18, creatinine 1.15, glucose 108, calcium 8.2 Troponin I 0.10 Assessment: Patient is a 75-year-old male with hypertensive heart disease, dyspnea, recurrent lung cancer. Patient reports continued shortness of breath and chest pain. Plan: #1: Precordial chest pain: Symptoms are stable, troponin I 0.10. Chest pain appears to be pleuritic and not cardiac in nature #2: Dyspnea: This is most likely secondary to his underlying lung disease, however patient did tolerate dose of Lasix yesterday. Patient will be started on 40 mg of IV Lasix daily. We'll continue to monitor patient daily for symptomatically improvement, continue to monitor renal function daily. If patient's renal function deteriorates, Lasix dose will be adjusted as appropriate #3: Coronary artery disease with prior inferior wall LA, status post CABG: Patient will continue on pravastatin, aspirin #4: Hypertensive heart disease without heart failure: Electrolytes stable, renal function stable, order placed for Lasix 40 mg IV daily. We will continue to monitor daily renal profile #5: Mitral and aortic valve disorder: Due to patient's underlying pulmonary disease at this time I was unable to appreciate any heart murmur #6: Paroxysmal supraventricular tachycardia: Patient currently on nonmonitored floor, heart rate regular to auscultation. Continue to monitor My preceptor for this patient encounter was physically present in the building during the encounter and was fully available. As needed, all aspects of the patient interview, examination, medical decision making process, and medical care plan development were reviewed and approved by the preceptor. Preceptor is aware and concurs with the plan as stated in the body of this note and will attest to such by his/her cosignature Clifford DE OLIVEIRA, I+O VSClifford I+O Laboratory Tests 05/24/16 06:28 Calcium Level 8.2 L, Red Blood Count 3.65 L, Mean Corpuscular Volume 88.2, Mean Corpuscular Hemoglobin 28.8, Mean Corpuscular Hemoglobin Concent 32.7, Red Cell Distribution Width 13.1 Vital Signs Date Time Temp Pulse Resp B/P Pulse Ox O2 Delivery O2 Flow Rate FiO2 05/24/16 09:00 Nasal Cannula 4.0 05/24/16 08:12 87 18 122/60 05/24/16 06:00 98.4 90 I&O- Last 24 Hours up to 6 AM 05/24/16 06:00 Intake Total 1780 ml Output Total 775 ml Balance 1005 ml DAYANA GRANADOS DO May 24, 2016 11:43
[2016-05-24 12:32] LABS: CREATININE FOR GFR 1.25 MG/DL (0.70-1.30); GLOMERULAR FILTRATION RATE 59.9 (>42); POTASSIUM SERUM 3.9 MEQ/L (3.5-5.1)
[2016-05-24 14:00] VITALS: BP 115/58
[2016-05-24] MEDS: NORCO, ANEXSIA 5/325MG TABLET (HYDROcodone/ACETAMINOPHEN) PO PRN (15:10)
[2016-05-24] MEDS: LevoFLOXacin 750 MG TABLET PO SCH (17:11)
--- NOTE | 2016-05-24 18:19 | ECGEPIP ---
Stationary ECG Study [facility] Test Date: 2016-05-23 Pat Name: KINGS ORTEGA Department: Room: [place] [address] Gender: M Multifocal Button Grinder: ESPERANZA CLIENT SERVICES ASSISTANT : 1940 Requested By: Neeraj Donato Order Number: [id number] Reading MD: Kael Sidhu Measurements Intervals [place] Rate: 92 P: 54 WI: 152 QRS: 54 QRSD: 117 T: 118 QT: 402 QTc: 500 Interpretive Statements SINUS RHYTHM POSSIBLE LEFT ATRIAL ENLARGEMENT POSSIBLE INFERIOR MYOCARDIAL INFARCTION, PROBABLY OLD ARTIFACT NOTED ON THE PRECORDIAL LEADS COMPARED TO THE LAST 2 TRACINGS, NO SIGNIFICANT CHANGES Electronically Signed On 05-24-2016 18:18:36 EDT by Kael Sidhu
--- NOTE | 2016-05-24 18:43 | IPN ---
DATE: 05/24/2016 CARDIOLOGY PROGRESS NOTE SUBJECTIVE: Apparently continues to feel short of breath with recurrent right-sided pleuritic pain. Was seen by Dr. Manzano who has discussed his very limited prognosis and lack of oncology options with he and his . He is considering comfort care measures. Analgesic therapy is being administered with some relief of his distress. OBJECTIVE: Currently bright and alert, elderly male of medium body build, lying with the head of the bed elevated 45 degrees, wearing supplemental oxygen. Obvious tachypnea and raspy respirations. Diuretic therapy administered yesterday and this morning do not appear to have a changed to his auscultatory findings. Has no more than plus/minus lower extremity pitting edema. Heart rate 88 beats per minute and regular, blood pressure 104/58. Respiratory rate 20 per minute, O2 saturation 89% on supplemental oxygen by nasal prongs at four liters. Afebrile. His weight today is unchanged from yesterday. LABORATORY DATA: Hemoglobin stable at 10.54, blood cell count is actually increased to 15,000, platelet count unchanged. Serum sodium 131. Other electrolytes were normal. BUN fairly stable at 19, creatinine slightly up to 1.3, fasting glucose 112. IMPRESSION/PLAN: 1. Dyspnea: Frustratingly, continues to be his chief complaint and has not responded to diuretic therapy with blood urea nitrogen (BUN) and creatinine slightly higher than the last few days. We have stopped his Lasix at this time. Remains on controlled supplemental oxygen with combination bronchodilator therapy. I am happy he has analgesic therapy for symptom relief. 2. Chest pain (precordial): Again lateralized and pleuritic related to his pulmonary disease and tumor. Started coughing up some blood earlier today. 3. Coronary artery disease (shawnee vessel)/prior inferior wall myocardial infarction (IWMI)/post coronary artery bypass graft (CABG): Does not appear to be suffering from ischemic pain as mentioned. Troponin I level this morning was negative. Remains on aspirin antiplatelet therapy with pravastatin. 4. Hypertensive heart disease (benign without heart failure): Soft blood pressure today because of his diuretic administered yesterday. BUN and creatinine marginally increased. We will not plan on giving him any further diuretic. 5. Paroxysmal supraventricular tachycardia: Currently appears to have a regular pulse on amiodarone therapy. The dosage of this medication will be decreased to 200 mg twice a day starting tomorrow. I appreciate his prognosis at this point is dismal and would be certainly supportive of his decision for comfort measures only. Our plan will be to follow from afar at this time. DURAN
[2016-05-24 20:00] VITALS: BP 110/60
[2016-05-24] MEDS ORDERED: MIRALAX *UNIT DOSE* 17GM PACKET PO PRN (21:15)
[2016-05-24] MEDS: PRAVASTATIN 20 MG TAB PO SCH (21:41)
[2016-05-25] MEDS: ALBUTEROL SULFATE 2.5 MG/0.5 ML INH NEB SOLN INH SCH ×6 (00:36→23:40)
[2016-05-25 05:40] VITALS: BP 126/86
[2016-05-25] MEDS: SLF 3 ML SYR IV SCH ×3 (06:00→20:07)
[2016-05-25 06:17] LABS: MEAN CORPUSCULAR HEMOGLOBIN 28.6 pg (27.0-33.0); MEAN CORPUSCULAR HGB CONC 32.1 g/dl (32.0-36.5); RED CELL DISTRIBUTION WIDTH 13.2 % (11.5-14.5); WHITE BLOOD COUNT 19.8 K/mm3 (4.0-10.0)
[2016-05-25] MEDS: LEVOTHYROXINE 0.05 MG TAB (50 MCG) PO SCH (06:27)
[2016-05-25 06:30] LABS: ALBUMIN 2.5 GM/DL (3.2-5.2); ANION GAP 12 MEQ/L (8-16); BLOOD UREA NITROGEN 24 MG/DL (7-18); CARBON DIOXIDE LEVEL 27 MEQ/L (21-32); CHLORIDE LEVEL 93 MEQ/L (98-107); CREATININE FOR GFR 1.11 MG/DL (0.70-1.30); GLOMERULAR FILTRATION RATE > 60.0 (>42); GLUCOSE, FASTING 109 MG/DL (83-110); PHOSPHORUS LEVEL 2.9 MG/DL (2.5-4.9); POTASSIUM SERUM 4.5 MEQ/L (3.5-5.1); SODIUM LEVEL 132 MEQ/L (136-145)
[2016-05-25] MEDS: NORCO, ANEXSIA 5/325MG TABLET (HYDROcodone/ACETAMINOPHEN) PO PRN ×3 (06:55→21:33)
[2016-05-25] MEDS: SYMBICORT 160/4.5MCG INHALER 6GM INH SCH ×2 (07:48→20:27)
--- NOTE | 2016-05-25 09:25 | IPNPDOC ---
Subjective Date Seen The patient was seen on 05/25/16. Subjective Chief Complaint/HPI The patient is a 75-year-old male admitted with a reason for visit of SOB. Events since last encounter + blood in sputum. Unable to lay flat. oncology note reviewed. Patient has poor prognosis. States is making decisions. Attempt to call , unsuccessful. States pain is well controlled. Constitutional: Reports: Fatigue, Lethargy, Weakness Skin: Denies: Breakdown, Lesions, Rash Pulmonary: Reports: Cough, Dyspnea, Other Symptoms (blood in sputum. ) Cardiovascular: Denies: Chest Pain, Lt Headedness, Orthopnea, Palpitations, Paroxysmal Noc. Dyspnea Gastrointestinal: Denies: Abdominal Pain, Constipation, Diarrhea, Nausea, Vomiting Genitourinary: Denies: Dysuria, Frequency, Incontinence, Retention Objective Physical Examination General Exam: Positive: Alert, No Acute Distress ENT Exam: Positive: Mucous membr. moist/pink Neck Exam: Positive: Supple Chest Exam: Positive: Diminished, Rales (bibasilar), Rhonchi (throughout) Heart Exam: Positive: Normal S1, Rate Normal Abdomen Exam: Positive: Normal bowel sounds, Soft, Negative: Tenderness Psych Exam: Positive: Mood NL, Oriented x 3 Assessment /Plan Problems (1) Junctional tachycardia Status: Acute Discussed With: Electrical Maintenance Engineer, Patient, Family with Pt Consent Problem Specific Plan: Consult Specialist, Monitor Clinically, Repeat Labs Problem Text: 05/25/16: cardiology managing. 05/24/16: per cardiology note: Amiodarone to be changed to bid on 05/25/16. Received Lasix 40 mg po over night. Will give another 20 mg now. Placed on fluid restriction. Dr. Donato involved and co-managing. 05/23Heart rate controlled. 5 days on amiodarone at current dose, bid after 05/21 -- heart rate in the 80s at time of exam. 05/20 - Rate remains mostly 110s, on Amio. Dr Donato consulted no notes on chart , pt reports he has not been in to see him (operating room assistant seems to be an issue with getting reports this weekend). 05/19 Dr Donato has been consulted, he has spoken with Dr Jason. Rec starting Amio, which has been ordered. (2) Mediastinal mass Status: Acute Problem Specific Plan: Monitor Clinically Problem Text: 05/25/16: patient unable to verbalize wishes. Will wait for . call made to unsuccessful 05/24/16: oncology consult completed. Note pending. 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 Consult Dr. Manzano requested. 05/21 -- Thoracentesis performed today, labs pending. Dr. Macias consulted. Will attempt to titrate O2. 05/20 - CT chest, A & P just done. Pt has seen Dr Macias in the past, will need consult for her recommendation on proceeding with investigation of the mass. 05/19 Pt has a h/o of adenocarcinoma of the lung, he has followed with Dr Weber for this, he has undergone chemotherapy with palliative Radiation therapy per the Onc notes. Last CT done 11/24 with relatively stable nodules. Will obtain CT with contrast of the chest, A & P. This is likely the source of his cough and SOB. Will request consult Dr. Macias, whom he has seen before. (3) History of adenocarcinoma of lung Status: Chronic Problem Specific Plan: Consult Specialist, Monitor Clinically Problem Text: See above. (4) CAD (coronary artery disease) of artery bypass graft Status: Chronic Problem Specific Plan: Monitor Clinically Problem Text: Cont with ASA, statin. Cardio follow. Plan/VTE VTE Prophylaxis Ordered?: Yes Plan Advance Directives: HCP VS, I&O, 24H, Ramosbone Vital Signs/I&O Vital Signs Date Time Temp Pulse Resp B/P Pulse Ox O2 Delivery O2 Flow Rate FiO2 05/25/16 07:30 18 Room Air 05/25/16 05:40 97.0 87 126/86 88 4.0 I&O- Last 24 Hours up to 6 AM 05/25/16 06:00 Intake Total 580 ml Output Total 300 ml Balance 280 ml Laboratory Data 24H LABS Laboratory Tests 2 05/24/16 11:58: Anion Gap 10, Blood Urea Nitrogen 19H, Creatinine 1.25, Sodium Level 131L, Potassium Level 3.9, Chloride Level 93L, Carbon Dioxide Level 28, Calcium Level 8.0L, Glomerular Filtration Rate 59.9 05/25/16 05:59: Anion Gap 12, Blood Urea Nitrogen 24H, Creatinine 1.11, Sodium Level 132L, Potassium Level 4.5, Chloride Level 93L, Carbon Dioxide Level 27, Calcium Level 9.0, Glomerular Filtration Rate > 60.0, Albumin 2.5L, Phosphorus Level 2.9 CBC/BMP Laboratory Tests 05/24/16 11:58 Calcium Level 8.0 L 05/25/16 05:59 Anion Gap 12, Red Blood Count 3.85 L, Mean Corpuscular Volume 89.0, Mean Corpuscular Hemoglobin 28.6, Mean Corpuscular Hemoglobin Concent 32.1, Red Cell Distribution Width 13.2 Microbiology Microbiology 05/18/16 Blood Culture - Final, Complete NO GROWTH AFTER 5 DAYS 05/18/16 Blood Culture - Final, Complete NO GROWTH AFTER 5 DAYS 05/21/16 Acid Fast Stain, Received Pending 05/21/16 Mycobacterial Culture, Received Pending 05/21/16 Fungal Smear, Received Pending 05/21/16 Fungal Culture, Received Pending 05/21/16 Gram Stain - Final, Complete 05/21/16 Body Fluid Culture - Final, Complete 05/21/16 Anaerobic Culture - Final, Complete 05/18/16 Respiratory Virus Panel (PCR) ([facility]) - Final, Complete Attending Note Attending Note Agree with findings and plan. Patient functional status very poor so not candidate for IV chemo. Genetic studies are to be done to see if he is a candidate for an oral med but the likelihood of having the genes is only 3-5% and the test will take at least a week. Not clear that he can go home due to poor overall status. Gisselle Pierre May 25, 2016 09:25 Fletcher Jason MD May 25, 2016 14:49
[2016-05-25] MEDS: FOLIC ACID 1 MG TAB PO SCH (10:10)
[2016-05-25] MEDS: AMIODARONE 200 MG TAB (PACERONE) PO SCH ×3 (10:10→20:07)
[2016-05-25] MEDS: GABAPENTIN 300 MG CAP PO SCH ×2 (10:10→20:07)
[2016-05-25] MEDS: ASPIRIN 81 MG ENTERIC TAB PO SCH (10:10)
[2016-05-25 14:00] VITALS: BP 119/51
[2016-05-25] MEDS: FUROSEMIDE 20 MG/2 ML VIAL (J1940) IV SCH (16:00)
[2016-05-25 16:58] VITALS: BP 97/53
--- NOTE | 2016-05-25 17:46 | REP ---
CHEST X-RAY PA AND LATERAL: 05/25/2016. Comparison: 05/23/2016 chest x-ray, CT chest 05/22/2016. Clinical history: Dyspnea. Findings: The right hilar and infrahilar opacity and perihilar fullness on the left with postoperative changes and surgical clips about the left hilum are again seen. There are sternotomy wires and mediastinal clips. Extensive basilar opacities suggesting patchy alveolar infiltrates or edema, slightly improved on the right side, new and fairly extensive similar infiltrates or edema at the left base. The postoperative changes with volume loss and apical opacity on the left are stable. No gross effusion. Heart size not enlarged. Aorta is tortuous. The bones show no acute compression deformity. Impression: 1. Slight improvement in the right lung and new and significant progression of left lung base patchy alveolar infiltrates or edema. Other changes stable and extensive as described above. Signed by Manjinder Eaton MD 05/28/2016 12:52 P
[2016-05-25] MEDS: methylPREDNISolone INJ 40 MG/1 ML VIAL (J2920) IV SCH (18:29)
[2016-05-25] MEDS: LevoFLOXacin 750 MG TABLET PO SCH (18:29)
[2016-05-25] MEDS ORDERED: diphenhydrAMINE 25 MG CAP PO PRN (18:45)
[2016-05-25] MEDS: PRAVASTATIN 20 MG TAB PO SCH (20:06)
[2016-05-25 20:30] VITALS: BP 111/56
[2016-05-26] VITALS: BP 115/55
[2016-05-26] MEDS: FUROSEMIDE 20 MG/2 ML VIAL (J1940) IV SCH ×3 (00:02→16:01)
[2016-05-26] MEDS: ALBUTEROL SULFATE 2.5 MG/0.5 ML INH NEB SOLN INH PRN (00:46)
[2016-05-26] MEDS: methylPREDNISolone INJ 40 MG/1 ML VIAL (J2920) IV SCH ×3 (01:34→17:23)
[2016-05-26] MEDS: ALBUTEROL SULFATE 2.5 MG/0.5 ML INH NEB SOLN INH SCH ×5 (03:34→18:54)
[2016-05-26 05:20] VITALS: BP 116/58
[2016-05-26] MEDS: LEVOTHYROXINE 0.05 MG TAB (50 MCG) PO SCH (05:44)
[2016-05-26] MEDS: SLF 3 ML SYR IV SCH ×3 (05:45→20:41)
[2016-05-26 06:49] LABS: MEAN CORPUSCULAR HEMOGLOBIN 28.8 pg (27.0-33.0); MEAN CORPUSCULAR HGB CONC 32.1 g/dl (32.0-36.5); MEAN CORPUSCULAR VOLUME 89.6 fl (80.0-96.0); RED CELL DISTRIBUTION WIDTH 13.2 % (11.5-14.5); WHITE BLOOD COUNT 14.3 K/mm3 (4.0-10.0)
[2016-05-26 07:07] LABS: ALBUMIN 2.4 GM/DL (3.2-5.2); ANION GAP 11 MEQ/L (8-16); BLOOD UREA NITROGEN 26 MG/DL (7-18); CARBON DIOXIDE LEVEL 26 MEQ/L (21-32); CHLORIDE LEVEL 93 MEQ/L (98-107); CREATININE FOR GFR 1.18 MG/DL (0.70-1.30); GLOMERULAR FILTRATION RATE > 60.0 (>42); GLUCOSE, FASTING 139 MG/DL (83-110); PHOSPHORUS LEVEL 3.4 MG/DL (2.5-4.9); POTASSIUM SERUM 4.6 MEQ/L (3.5-5.1); SODIUM LEVEL 130 MEQ/L (136-145)
[2016-05-26] MEDS: SYMBICORT 160/4.5MCG INHALER 6GM INH SCH ×2 (07:51→20:14)
--- NOTE | 2016-05-26 08:33 | IPNPDOC ---
Subjective Date Seen The patient was seen on 05/26/16. Subjective Chief Complaint/HPI The patient is a 75-year-old male admitted with a reason for visit of SOB. Events since last encounter Improvement in pulmonary symptoms with solumedrol and Lasix addition Constitutional: Denies: Chills, Fever, Night Sweats Skin: Denies: Breakdown, Lesions, Rash Pulmonary: Reports: Cough, Dyspnea, Other Symptoms (+ blood tinged sputum), Pleuritic Chest Pain Cardiovascular: Denies: Chest Pain, Lt Headedness, Orthopnea, Palpitations, Paroxysmal Noc. Dyspnea Gastrointestinal: Denies: Abdominal Pain, Constipation, Diarrhea, Nausea, Vomiting Genitourinary: Denies: Dysuria, Frequency, Incontinence, Retention Psych: Reports: Mood Normal, Denies: Depression, Memory Issues Objective Physical Examination General Exam: Positive: Alert, No Acute Distress ENT Exam: Positive: Mucous membr. moist/pink Neck Exam: Positive: Supple Chest Exam: Positive: Diminished, Other (bloody sputum noted), Rales (bibasilar ), Rhonchi (throughout) Heart Exam: Positive: Normal S1, Rate Normal Abdomen Exam: Positive: Normal bowel sounds, Soft, Negative: Tenderness Psych Exam: Positive: Mood NL, Oriented x 3 Assessment /Plan Problems (1) Junctional tachycardia Status: Acute Discussed With: Product Communications Manager, Patient, Family with Pt Consent Problem Specific Plan: Consult Specialist, Monitor Clinically, Repeat Labs Problem Text: 05/26/2016: unchanged, cardiology following and managing cardio meds. 05/25/16: cardiology managing. 05/24/16: per cardiology note: Amiodarone to be changed to bid on 05/25/16. Received Lasix 40 mg po over night. Will give another 20 mg now. Placed on fluid restriction. Dr. Donato involved and co-managing. 05/23Heart rate controlled. 5 days on amiodarone at current dose, bid after 05/21 -- heart rate in the 80s at time of exam. 05/20 - Rate remains mostly 110s, on Amio. Dr Donato consulted no notes on chart , pt reports he has not been in to see him (organization development consultant seems to be an issue with getting reports this weekend). 05/19 Dr Donato has been consulted, he has spoken with Dr Jason. Rec starting Amio, which has been ordered. (2) Mediastinal mass Status: Acute Problem Specific Plan: Monitor Clinically Problem Text: 05/26/16: patient remains unsure regarding palliative care versus tx. Dr. Knight, oncology also involved. PFS involved. 05/25/16: patient unable to verbalize wishes. Will wait for . call made to unsuccessful 05/24/16: oncology consult completed. Note pending. 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 Consult Dr. Manzano requested. 05/21 -- Thoracentesis performed today, labs pending. Dr. Macias consulted. Will attempt to titrate O2. 05/20 - CT chest, A & P just done. Pt has seen Dr Macias in the past, will need consult for her recommendation on proceeding with investigation of the mass. 05/19 Pt has a h/o of adenocarcinoma of the lung, he has followed with Dr Weber for this, he has undergone chemotherapy with palliative Radiation therapy per the Onc notes. Last CT done 11/24 with relatively stable nodules. Will obtain CT with contrast of the chest, A & P. This is likely the source of his cough and SOB. Will request consult Dr. Macias, whom he has seen before. (3) History of adenocarcinoma of lung Status: Chronic Problem Specific Plan: Consult Specialist, Monitor Clinically Problem Text: See above. (4) CAD (coronary artery disease) of artery bypass graft Status: Chronic Problem Specific Plan: Monitor Clinically Problem Text: Cont with ASA, statin. Cardio follow. Plan/VTE VTE Prophylaxis Ordered?: Yes Plan Advance Directives: HCP VS, I&O, 24H, Fishbone Vital Signs/I&O Vital Signs Date Time Temp Pulse Resp B/P Pulse Ox O2 Delivery O2 Flow Rate FiO2 05/26/16 07:51 Nasal Cannula 4.0 05/26/16 05:20 97.5 81 17 116/58 92 I&O- Last 24 Hours up to 6 AM 05/26/16 06:00 Intake Total 600 ml Output Total 550 ml Balance 50 ml Laboratory Data 24H LABS Laboratory Tests 2 05/25/16 16:59: Urine Amorphous Sediment SMALLH, Urine Appearance HAZY, Urine Color YELLOW, Urine pH 6.0, Urine Specific [place] 1.027, Urine Protein 1+H, Urine Glucose (UA ) NEGATIVE, Urine Ketones 1+H, Urine Urobilinogen 2.0H, Urine Bilirubin NEGATIVE , Urine Leukocyte Esterase NEGATIVE, Urine Bacteria (Auto) NEGATIVE, Urine Blood NEGATIVE, Urine Calcium Carbonate Cryst(Auto) , Urine Calcium Oxalate Cryst (Auto) , Urine Calcium Phosphate Lyric (Auto) , Urine Cellular Casts , Urine Cystine Crystals , Urine Granular Casts (Auto) , Urine Hyaline Casts (Auto ) 4, Urine Leucine Crystals , Urine Mucus (Auto) LARGE, Urine Nitrite NEGATIVE, Urine Oval Fat Bodies (Auto) , Urine RBC (Auto) 3, Urine Renal Epithelial Cells , Urine Sperm (Auto) , Urine Squamous Epithelial Cells 0, Urine Transitional Epithelial Cells , Urine Trichomonas (Auto) , Urine Triple Phosphate Cryst (Auto ) , Urine Tyrosine Crystals , Urine Uric Acid Crystals (Auto) , Urine WBC (Auto ) 9H, Urine Waxy Casts (Auto) , Urine Yeast-Like Cells (Auto) 05/26/16 06:27: Albumin 2.4L, Blood Urea Nitrogen 26H, Creatinine 1.18, Sodium Level 130L, Potassium Level 4.6, Chloride Level 93L, Carbon Dioxide Level 26, Anion Gap 11, Calcium Level 9.0, Glomerular Filtration Rate > 60.0, Phosphorus Level 3.4 CBC/BMP Laboratory Tests 05/26/16 06:27 Anion Gap 11, Red Blood Count 3.94 L, Mean Corpuscular Volume 89.6, Mean Corpuscular Hemoglobin 28.8, Mean Corpuscular Hemoglobin Concent 32.1, Red Cell Distribution Width 13.2 Microbiology Microbiology 05/18/16 Blood Culture - Final, Complete NO GROWTH AFTER 5 DAYS 05/18/16 Blood Culture - Final, Complete NO GROWTH AFTER 5 DAYS 05/21/16 Acid Fast Stain, Received Pending 05/21/16 Mycobacterial Culture, Received Pending 05/21/16 Fungal Smear, Received Pending 05/21/16 Fungal Culture, Received Pending 05/21/16 Gram Stain - Final, Resulted 05/21/16 Body Fluid Culture - Final, Resulted 05/21/16 Anaerobic Culture - Final, Resulted 05/18/16 Respiratory Virus Panel (PCR) ([facility]) - Final, Complete Gisselle Pierre DIRECTOR OF PLANNING May 26, 2016 08:33
[2016-05-26] MEDS: ASPIRIN 81 MG ENTERIC TAB PO SCH (08:47)
[2016-05-26] MEDS: GABAPENTIN 300 MG CAP PO SCH ×2 (08:48→20:40)
[2016-05-26] MEDS: FOLIC ACID 1 MG TAB PO SCH (08:48)
[2016-05-26] MEDS: NORCO, ANEXSIA 5/325MG TABLET (HYDROcodone/ACETAMINOPHEN) PO PRN ×3 (08:49→20:40)
[2016-05-26] MEDS: AMIODARONE 200 MG TAB (PACERONE) PO SCH ×2 (09:02→20:40)
[2016-05-26 10:01] VITALS: BP 109/51
[2016-05-26] MEDS ORDERED: SODIUM CHLORIDE 0.9% NASAL GEL 15MG (AYR) PRN (13:15)
[2016-05-26 14:00] VITALS: BP 90/56
[2016-05-26 15:49] VITALS: BP 110/62
[2016-05-26] MEDS: LevoFLOXacin 750 MG TABLET PO SCH (17:23)
[2016-05-26 20:00] VITALS: BP 116/58
[2016-05-26] MEDS: PRAVASTATIN 20 MG TAB PO SCH (20:40)
[2016-05-27] VITALS (10 sets, daily range): BP systolic 96–129; BP diastolic 52–61; O2SAT 82–98
[2016-05-27] MEDS: ALBUTEROL SULFATE 2.5 MG/0.5 ML INH NEB SOLN INH SCH ×7 (00:09→23:26)
[2016-05-27] MEDS: FUROSEMIDE 20 MG/2 ML VIAL (J1940) IV SCH ×2 (00:19→08:10)
[2016-05-27] MEDS: methylPREDNISolone INJ 40 MG/1 ML VIAL (J2920) IV SCH ×3 (01:59→18:07)
[2016-05-27] MEDS: SLF 3 ML SYR IV SCH ×3 (05:39→20:35)
[2016-05-27] MEDS: LEVOTHYROXINE 0.05 MG TAB (50 MCG) PO SCH (05:39)
[2016-05-27 06:36] LABS: MEAN CORPUSCULAR HEMOGLOBIN 28.8 pg (27.0-33.0); MEAN CORPUSCULAR HGB CONC 32.4 g/dl (32.0-36.5); RED CELL DISTRIBUTION WIDTH 13.3 % (11.5-14.5); WHITE BLOOD COUNT 22.3 K/mm3 (4.0-10.0)
[2016-05-27 06:40] LABS: ALBUMIN 2.5 GM/DL (3.2-5.2); CALCIUM LEVEL 8.4 MG/DL (8.8-10.2); CREATININE FOR GFR 1.34 MG/DL (0.70-1.30); GLOMERULAR FILTRATION RATE 55.3 (>42); PHOSPHORUS LEVEL 2.9 MG/DL (2.5-4.9); POTASSIUM SERUM 4.1 MEQ/L (3.5-5.1)
[2016-05-27] MEDS: SYMBICORT 160/4.5MCG INHALER 6GM INH SCH ×2 (07:56→19:45)
[2016-05-27] MEDS: FOLIC ACID 1 MG TAB PO SCH (08:09)
[2016-05-27] MEDS: ASPIRIN 81 MG ENTERIC TAB PO SCH (08:09)
[2016-05-27] MEDS: AMIODARONE 200 MG TAB (PACERONE) PO SCH ×2 (08:09→20:35)
[2016-05-27] MEDS: GABAPENTIN 300 MG CAP PO SCH ×2 (08:09→20:34)
[2016-05-27] MEDS: NORCO, ANEXSIA 5/325MG TABLET (HYDROcodone/ACETAMINOPHEN) PO PRN ×2 (08:10→20:35)
--- NOTE | 2016-05-27 10:30 | IPNPDOC ---
Subjective Date Seen The patient was seen on 05/27/16. Subjective Chief Complaint/HPI The patient is a 75-year-old male admitted with a reason for visit of SOB. Events since last encounter Continues to require increased oxygenation. Now on 5LNC. CXR from 05/25/2016: progressing infiltrate. Constitutional: Reports: Fatigue, Weakness, Denies: Chills, Fever, Night Sweats Skin: Denies: Breakdown, Lesions, Rash Pulmonary: Reports: Cough, Dyspnea, Other Symptoms (unable to lay flat) Cardiovascular: Denies: Chest Pain, Palpitations Gastrointestinal: Denies: Abdominal Pain, Constipation, Diarrhea, Nausea, Vomiting Genitourinary: Denies: Dysuria, Frequency, Incontinence, Retention Psych: Reports: Mood Normal, Denies: Depression, Memory Issues Objective Physical Examination General Exam: Positive: Alert, No Acute Distress ENT Exam: Positive: Mucous membr. moist/pink Neck Exam: Positive: Supple Chest Exam: Positive: Diminished, Other (bloody sputum noted), Rales (bibasilar ), Rhonchi (throughout) Heart Exam: Positive: Normal S1, Rate Normal Abdomen Exam: Positive: Normal bowel sounds, Soft, Negative: Tenderness Psych Exam: Positive: Mood NL, Oriented x 3 Assessment /Plan Problems (1) Junctional tachycardia Status: Acute Discussed With: Automation/Controls Manager, Patient, Family with Pt Consent Problem Specific Plan: Consult Specialist, Monitor Clinically, Repeat Labs Problem Text: 05/26/2016: unchanged, cardiology following and managing cardio meds. 05/25/16: cardiology managing. 05/24/16: per cardiology note: Amiodarone to be changed to bid on 05/25/16. Received Lasix 40 mg po over night. Will give another 20 mg now. Placed on fluid restriction. Dr. Donato involved and co-managing. 05/23Heart rate controlled. 5 days on amiodarone at current dose, bid after 05/21 -- heart rate in the 80s at time of exam. 05/20 - Rate remains mostly 110s, on Amio. Dr Donato consulted no notes on chart , pt reports he has not been in to see him (rating specialist seems to be an issue with getting reports this weekend). 05/19 Dr Donato has been consulted, he has spoken with Dr Jason. Rec starting Amio, which has been ordered. (2) Mediastinal mass Status: Acute Problem Specific Plan: Monitor Clinically Problem Text: 05/27/16: patient remains unsure regarding palliative care versus tx. Dr. Knight, oncology also involved. PFS involved. Attempt to re- discuss today, uneventful. Wishes to wait until tumor markers return. 05/26/16: patient remains unsure regarding palliative care versus tx. Dr. Knight, oncology also involved. PFS involved. 05/25/16: patient unable to verbalize wishes. Will wait for . call made to unsuccessful 05/24/16: oncology consult completed. Note pending. 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 Consult Dr. Manzano requested. 05/21 -- Thoracentesis performed today, labs pending. Dr. Macias consulted. Will attempt to titrate O2. 05/20 - CT chest, A & P just done. Pt has seen Dr Macias in the past, will need consult for her recommendation on proceeding with investigation of the mass. 05/19 Pt has a h/o of adenocarcinoma of the lung, he has followed with Dr Weber for this, he has undergone chemotherapy with palliative Radiation therapy per the Onc notes. Last CT done 11/24 with relatively stable nodules. Will obtain CT with contrast of the chest, A & P. This is likely the source of his cough and SOB. Will request consult Dr. Macias, whom he has seen before. (3) Pneumonia Status: Acute Problem Text: DC levaquin. Start Pip/geetha. WBC 19,000. Start Mucinex and Chest PT. (4) History of adenocarcinoma of lung Status: Chronic Problem Specific Plan: Consult Specialist, Monitor Clinically Problem Text: See above. (5) CAD (coronary artery disease) of artery bypass graft Status: Chronic Problem Specific Plan: Monitor Clinically Problem Text: Cont with ASA, statin. Cardio follow. Plan/VTE VTE Prophylaxis Ordered?: Yes Plan Advance Directives: HCP VS, I&O, 24H, Fishbone Vital Signs/I&O Vital Signs Date Time Temp Pulse Resp B/P Pulse Ox O2 Delivery O2 Flow Rate FiO2 05/27/16 08:40 20 05/27/16 08:10 112/56 05/27/16 05:56 98.1 88 90 Nasal Cannula 6.0 I&O- Last 24 Hours up to 6 AM 05/27/16 06:00 Intake Total 900 ml Output Total 1150 ml Balance -250 ml Laboratory Data 24H LABS Laboratory Tests 2 05/27/16 06:11: Albumin 2.5L, Blood Urea Nitrogen 30H, Creatinine 1.34H, Sodium Level 131L, Potassium Level 4.1, Chloride Level 91L, Carbon Dioxide Level 28, Anion Gap 12, Calcium Level 8.4L, Glomerular Filtration Rate 55.3, Phosphorus Level 2.9 CBC/BMP Laboratory Tests 05/27/16 06:11 Anion Gap 12, Red Blood Count 3.87 L, Mean Corpuscular Volume 89.0, Mean Corpuscular Hemoglobin 28.8, Mean Corpuscular Hemoglobin Concent 32.4, Red Cell Distribution Width 13.3 Microbiology Microbiology 05/18/16 Blood Culture - Final, Complete NO GROWTH AFTER 5 DAYS 05/18/16 Blood Culture - Final, Complete NO GROWTH AFTER 5 DAYS 05/21/16 Acid Fast Stain - Final, Resulted 05/21/16 Mycobacterial Culture, Resulted Pending 05/21/16 Fungal Smear - Final, Resulted 05/21/16 Fungal Culture, Resulted Pending 05/21/16 Gram Stain - Final, Resulted 05/21/16 Body Fluid Culture - Final, Resulted 05/21/16 Anaerobic Culture - Final, Resulted 05/18/16 Respiratory Virus Panel (PCR) ([facility]) - Final, Complete Gisselle Pierre ROLLING MACHINE TENDER May 27, 2016 10:30
[2016-05-27] MEDS: PIPERACILLIN/TAZOBACTAM SOD 3.375 GM in D5W MINI-BAG PLUS 50 ML IV SCH ×2 (11:21→18:07)
[2016-05-27] MEDS: guaiFENesin 200 MG TAB PO SCH ×2 (11:21→20:34)
[2016-05-27] MEDS: PRAVASTATIN 20 MG TAB PO SCH (20:35)
--- NOTE | 2016-05-27 23:50 | REPUSA ---
HISTORY: Shortness of breath, decreased oxygen saturation COMPARISON: CT chest May 18, 2016. CHEST, FRONTAL: Heart: No cardiomegaly. Lungs: Again seen is opacification of the left lung apex which represents left upper lobe collapse/co nsolidation. Right pleural effusion is difficult to quantify without lateral view. Increased haziness over both lower lung ulloa is consistent with a combination of effusion and interstitial lung edema . Skeleton: Median sternotomy. IMPRESSION: 1. Interval worsening of left lower lobe parenchymal edema pattern. 2. Stable left upper lobe collapse/consolidation. 3. Right pleural effusion with mild interstitial edema. 4. The rounded lesions in the medial aspect of the right upper and right lower lobes seen on the rece nt CT are not well delineated by chest radiograph.
[2016-05-28] VITALS (7 sets, daily range): BP systolic 102–108; BP diastolic 50–57; O2SAT 92–95
[2016-05-28] MEDS: methylPREDNISolone INJ 40 MG/1 ML VIAL (J2920) IV SCH ×3 (02:23→18:57)
[2016-05-28] MEDS: PIPERACILLIN/TAZOBACTAM SOD 3.375 GM in D5W MINI-BAG PLUS 50 ML IV SCH ×3 (02:24→18:57)
[2016-05-28] MEDS: ALBUTEROL SULFATE 2.5 MG/0.5 ML INH NEB SOLN INH SCH ×6 (03:51→23:08)
[2016-05-28] MEDS: LEVOTHYROXINE 0.05 MG TAB (50 MCG) PO SCH (05:47)
[2016-05-28] MEDS: SLF 3 ML SYR IV SCH ×3 (05:48→20:16)
[2016-05-28 06:10] LABS: MEAN CORPUSCULAR HEMOGLOBIN 28.3 pg (27.0-33.0); MEAN CORPUSCULAR HGB CONC 32.2 g/dl (32.0-36.5); MEAN CORPUSCULAR VOLUME 87.8 fl (80.0-96.0); RED CELL DISTRIBUTION WIDTH 13.3 % (11.5-14.5); WHITE BLOOD COUNT 20.8 K/mm3 (4.0-10.0)
[2016-05-28 06:16] LABS: ALBUMIN 2.6 GM/DL (3.2-5.2); ALBUMIN/GLOBULIN RATIO 0.58 (1.00-1.93); BILIRUBIN,TOTAL 0.6 MG/DL (0.2-1.0); CALCIUM LEVEL 8.6 MG/DL (8.8-10.2); CREATININE FOR GFR 1.38 MG/DL (0.70-1.30); GLOMERULAR FILTRATION RATE 53.5 (>42); POTASSIUM SERUM 3.6 MEQ/L (3.5-5.1); TOTAL PROTEIN 7.1 GM/DL (6.4-8.2)
[2016-05-28 07:06] LABS: BANDS 1 % (< 11); NUCLEATED RED BLOOD CELL 1 % (0-0)
[2016-05-28] MEDS: SYMBICORT 160/4.5MCG INHALER 6GM INH SCH ×2 (09:16→19:53)
[2016-05-28 10:11] LABS: ABG HCO3 27.2 MEQ/L (22.0-26.0); ABG PARTIAL PRESSURE CO2 35.7 mmHg (35.0-45.0); ABG PARTIAL PRESSURE O2 72.3 mmHg (75.0-100.0); ABG TOTAL CO2 28.2 MEQ/L (23.0-31.0); ABG pH (ARTERIAL) 7.499 UNITS (7.350-7.450)
[2016-05-28] MEDS: ASPIRIN 81 MG ENTERIC TAB PO SCH (10:16)
[2016-05-28] MEDS: AMIODARONE 200 MG TAB (PACERONE) PO SCH ×2 (10:16→20:15)
[2016-05-28] MEDS: GABAPENTIN 300 MG CAP PO SCH ×2 (10:16→20:15)
[2016-05-28] MEDS: guaiFENesin 200 MG TAB PO SCH ×2 (10:17→20:16)
[2016-05-28] MEDS: FOLIC ACID 1 MG TAB PO SCH (10:17)
[2016-05-28] MEDS ORDERED: FUROSEMIDE 40 MG/4 ML VIAL (J1940) IV ONE (10:45)
[2016-05-28] MEDS: PRAVASTATIN 20 MG TAB PO SCH (20:15)
--- NOTE | 2016-05-29 00:19 | IPNPDOC ---
Subjective Date Seen The patient was seen on 05/28/16. Subjective Chief Complaint/HPI The patient is a 75-year-old male admitted with a reason for visit of SOB. Events since last encounter Supplemental oxygen demand increased significantly overnight. CXR reviewed and case discussed with Dr. Lopez, who recommended further diuresis. RT present throughout the day adjusting patient's oxygen. Patient desats quickly with movement or temporarily removing O2 to clean his nose. Today he admitted to feeling poorly -- the previous 2 days he has stated that he is "breathing better " despite requiring increasing amounts of O2. Constitutional: Reports: Fatigue, Malaise, Weakness, Denies: Chills, Fever Pulmonary: Reports: Cough, Dyspnea Cardiovascular: Denies: Chest Pain Gastrointestinal: Denies: Constipation, Diarrhea, Nausea, Vomiting Objective Physical Examination General Exam: Positive: Alert, Moderate Distress ENT Exam: Positive: Mucous membr. moist/pink Neck Exam: Positive: Supple Chest Exam: Positive: Diminished, Other (bloody sputum noted), Rales (bibasilar ), Rhonchi (throughout) Heart Exam: Positive: Normal S1, Tachycardic Abdomen Exam: Positive: Normal bowel sounds, Soft, Negative: Tenderness Extremity Exam: Negative: Edema Skin Exam: Positive: Nl turgor and temperature Psych Exam: Positive: Mood NL, Oriented x 3 Assessment /Plan Problems (1) Pneumonia Status: Acute Problem Text: DC levaquin. Start Pip/geetha. WBC 19,000. Start Mucinex and Chest PT. (2) Junctional tachycardia Status: Acute Discussed With: Wastewater Technician, Patient, Family with Pt Consent Problem Specific Plan: Consult Specialist, Monitor Clinically, Repeat Labs Problem Text: 05/26/2016: unchanged, cardiology following and managing cardio meds. 05/25/16: cardiology managing. 05/24/16: per cardiology note: Amiodarone to be changed to bid on 05/25/16. Received Lasix 40 mg po over night. Will give another 20 mg now. Placed on fluid restriction. Dr. Donato involved and co-managing. 05/23Heart rate controlled. 5 days on amiodarone at current dose, bid after 05/21 -- heart rate in the 80s at time of exam. 05/20 - Rate remains mostly 110s, on Amio. Dr Donato consulted no notes on chart , pt reports he has not been in to see him (sheeting puller seems to be an issue with getting reports this weekend). 05/19 Dr Donato has been consulted, he has spoken with Dr Jason. Rec starting Amio, which has been ordered. (3) Mediastinal mass Status: Acute Problem Specific Plan: Monitor Clinically Problem Text: 05/27/16: patient remains unsure regarding palliative care versus tx. Dr. Knight, oncology also involved. PFS involved. Attempt to re- discuss today, uneventful. Wishes to wait until tumor markers return. 05/26/16: patient remains unsure regarding palliative care versus tx. Dr. Knight, oncology also involved. PFS involved. 05/25/16: patient unable to verbalize wishes. Will wait for . call made to unsuccessful 05/24/16: oncology consult completed. Note pending. 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 Consult Dr. Manzano requested. 05/21 -- Thoracentesis performed today, labs pending. Dr. Macias consulted. Will attempt to titrate O2. 05/20 - CT chest, A & P just done. Pt has seen Dr Macias in the past, will need consult for her recommendation on proceeding with investigation of the mass. 05/19 Pt has a h/o of adenocarcinoma of the lung, he has followed with Dr Weber for this, he has undergone chemotherapy with palliative Radiation therapy per the Onc notes. Last CT done 11/24 with relatively stable nodules. Will obtain CT with contrast of the chest, A & P. This is likely the source of his cough and SOB. Will request consult Dr. Macias, whom he has seen before. (4) History of adenocarcinoma of lung Status: Chronic Problem Specific Plan: Consult Specialist, Monitor Clinically Problem Text: 05/28: There was some concern earlier today when we were unable to locate the labwork for genetic mutations that Dr. Knight had been discussing in her note, but lab confirmed that they had, in fact, been ordered. Path reported that one marker (not listed in her notes) had resulted positive. Per chart, any treatment that the tumor markers would qualify him for would not be curative. See above. (5) CAD (coronary artery disease) of artery bypass graft Status: Chronic Problem Specific Plan: Monitor Clinically Problem Text: Cont with ASA, statin. Cardio follow. (6) Poor prognosis Status: Acute Problem Text: Even without pneumonia and cardiac complications, he would be hospice eligible secondary to this cancer. verbalized to me privately today that she and her both knew that he was dying. However, she was not ready to have a conversation about TRANSPORT ASSISTANT, and was adamant that now was not a good time to discuss it with her . Plan/VTE VTE Prophylaxis Ordered?: Yes Plan Advance Directives: HCP VS, I&O, 24H, Fishbone Vital Signs/I&O Vital Signs Date Time Temp Pulse Resp B/P Pulse Ox O2 Delivery O2 Flow Rate FiO2 05/28/16 23:08 93 High Flow Mask 15.0 80 05/28/16 22:00 98.1 83 21 102/50 I&O- Last 24 Hours up to 6 AM 05/29/16 06:00 Intake Total 540 ml Output Total 520 ml Balance 20 ml Laboratory Data 24H LABS Laboratory Tests 2 05/28/16 05:44: Blood Urea Nitrogen 31H, Creatinine 1.38H, Sodium Level 131L, Potassium Level 3.6, Chloride Level 90L, Carbon Dioxide Level 28, Calcium Level 8.6L, Aspartate Amino Transf (AST/SGOT) 131H, Alanine Aminotransferase (ALT/SGPT) 114H, Alkaline Phosphatase 177H, Total Bilirubin 0.6, Total Protein 7.1, Albumin 2.6L , Albumin/Globulin Ratio 0.58L, Anion Gap 13, Band Neutrophils 1, Glomerular Filtration Rate 53.5, Lymphocytes (Manual) 1L, Monocytes (Manual) 2, Neutrophils 96H, Nucleated Red Blood Cells 1H, Platelet Estimate INCREASED, Red Blood Cell Morphology NORMAL 05/28/16 10:05: Arterial Blood pH 7.499H, Arterial Blood Partial Pressure CO2 35.7, Arterial Blood Partial Pressure O2 72.3L, Arterial Blood Total CO2 28.2, Arterial Blood HCO3 27.2H, Arterial Blood Base Excess 4.0H, Arterial Blood Oxygen Saturation 94.8L, Blood Gas Bicarbonate Standard 28.0H CBC/BMP Laboratory Tests 05/28/16 05:44 Calcium Level 8.6 L, Aspartate Amino Transf (AST/SGOT) 131 H, Alanine Aminotransferase (ALT/SGPT) 114 H, Alkaline Phosphatase 177 H, Total Bilirubin 0.6, Total Protein 7.1, Albumin 2.6 L Microbiology Microbiology 05/21/16 Acid Fast Stain - Final, Resulted 05/21/16 Mycobacterial Culture, Resulted Pending 05/21/16 Fungal Smear - Final, Resulted 05/21/16 Fungal Culture, Resulted Pending 05/21/16 Gram Stain - Final, Resulted 05/21/16 Body Fluid Culture - Final, Resulted 05/21/16 Anaerobic Culture - Final, Resulted YUE MELGAR DO May 29, 2016 00:19
[2016-05-29] MEDS: methylPREDNISolone INJ 40 MG/1 ML VIAL (J2920) IV SCH ×3 (02:34→18:07)
[2016-05-29] MEDS: PIPERACILLIN/TAZOBACTAM SOD 3.375 GM in D5W MINI-BAG PLUS 50 ML IV SCH ×3 (02:34→18:07)
[2016-05-29 03:00] VITALS: O2SAT 91
[2016-05-29] MEDS: ALBUTEROL SULFATE 2.5 MG/0.5 ML INH NEB SOLN INH SCH ×6 (03:01→23:26)
[2016-05-29] MEDS: NORCO, ANEXSIA 5/325MG TABLET (HYDROcodone/ACETAMINOPHEN) PO PRN ×2 (03:14→20:39)
[2016-05-29] MEDS: SLF 3 ML SYR IV SCH ×3 (05:29→22:00)
[2016-05-29] MEDS: LEVOTHYROXINE 0.05 MG TAB (50 MCG) PO SCH (05:29)
[2016-05-29 06:00] VITALS: BP 104/52
[2016-05-29 06:01] LABS: MEAN CORPUSCULAR HEMOGLOBIN 29.4 pg (27.0-33.0); MEAN CORPUSCULAR HGB CONC 33.3 g/dl (32.0-36.5); MEAN CORPUSCULAR VOLUME 88.3 fl (80.0-96.0); RED CELL DISTRIBUTION WIDTH 13.5 % (11.5-14.5); WHITE BLOOD COUNT 20.7 K/mm3 (4.0-10.0)
[2016-05-29 06:20] LABS: ALBUMIN 2.4 GM/DL (3.2-5.2); ALBUMIN/GLOBULIN RATIO 0.56 (1.00-1.93); BILIRUBIN,TOTAL 0.5 MG/DL (0.2-1.0); CALCIUM LEVEL 7.8 MG/DL (8.8-10.2); CREATININE FOR GFR 1.34 MG/DL (0.70-1.30); GLOMERULAR FILTRATION RATE 55.3 (>42); POTASSIUM SERUM 3.9 MEQ/L (3.5-5.1); TOTAL PROTEIN 6.7 GM/DL (6.4-8.2)
[2016-05-29] MEDS: SYMBICORT 160/4.5MCG INHALER 6GM INH SCH ×2 (08:40→20:05)
[2016-05-29] MEDS: FOLIC ACID 1 MG TAB PO SCH (09:14)
[2016-05-29] MEDS: ASPIRIN 81 MG ENTERIC TAB PO SCH (09:14)
[2016-05-29] MEDS: AMIODARONE 200 MG TAB (PACERONE) PO SCH ×2 (09:15→20:38)
[2016-05-29] MEDS: GABAPENTIN 300 MG CAP PO SCH ×2 (09:15→20:39)
[2016-05-29] MEDS: guaiFENesin 200 MG TAB PO SCH ×2 (09:15→20:38)
[2016-05-29 14:00] VITALS: BP 95/61
[2016-05-29 16:00] VITALS: BP 100/56
--- NOTE | 2016-05-29 18:56 | IPNPDOC ---
Subjective Date Seen The patient was seen on 05/29/16. Subjective Chief Complaint/HPI The patient is a 75-year-old male admitted with a reason for visit of SOB. Events since last encounter Pt cont to have SOB requiring high-flow oxygen. Denies fevers, chills, or sweats. Constitutional: Denies: Chills, Fever, Malaise Pulmonary: Reports: Cough, Dyspnea, Denies: Pleuritic Chest Pain Cardiovascular: Denies: Chest Pain, Palpitations Gastrointestinal: Denies: Abdominal Pain, Constipation, Diarrhea, Nausea, Vomiting Genitourinary: Denies: Dysuria Other systems 10-pt ROS otherwise negative Objective Physical Examination General Exam: Positive: Alert, No Acute Distress ENT Exam: Positive: Mucous membr. moist/pink Neck Exam: Positive: Supple Chest Exam: Positive: Diminished, Other (bloody sputum noted), Rales (bibasilar ), Rhonchi (throughout) Heart Exam: Positive: Normal S1, Tachycardic Abdomen Exam: Positive: Normal bowel sounds, Soft, Negative: Tenderness Extremity Exam: Negative: Edema Skin Exam: Positive: Nl turgor and temperature Psych Exam: Positive: Mood NL, Oriented x 3 Assessment /Plan Problems (1) Mediastinal mass Status: Acute Problem Specific Plan: Monitor Clinically Problem Text: Adenocarcinoma of the lung. S/p thoracentesis with pathology for tumor markers. Tumor markers returned with high expression of PD-L1. Indicated to pt that Dr. Knight will need to discuss ramifications of this. - discuss tumor markers with Dr. Knight 05/30/16 (2) Pneumonia Status: Acute Problem Text: Zosyn day 3, Mucinex, and Chest PT. (3) Junctional tachycardia Status: Acute Discussed With: Adjunct Professor, Patient, Family with Pt Consent Problem Specific Plan: Consult Specialist, Monitor Clinically, Repeat Labs Problem Text: Unchanged, cardiology following and managing cardio meds. Amiodarone BID. (4) History of adenocarcinoma of lung Status: Chronic Problem Specific Plan: Consult Specialist, Monitor Clinically Problem Text: Per chart, any treatment that the tumor markers would qualify him for would not be curative. See above. (5) CAD (coronary artery disease) of artery bypass graft Status: Chronic Problem Specific Plan: Monitor Clinically Problem Text: Cont with ASA, statin. Cardio follow. (6) Poor prognosis Status: Acute Problem Text: Even without pneumonia and cardiac complications, he would be hospice eligible secondary to this cancer. verbalized to me privately today that she and her both knew that he was dying. However, she was not ready to have a conversation about COMPOUNDER HELPER, and was adamant that now was not a good time to discuss it with her . Plan/VTE VTE Prophylaxis Ordered?: Yes Plan Advance Directives: HCP VS, I&O, 24H, Fishbone Vital Signs/I&O Vital Signs Date Time Temp Pulse Resp B/P Pulse Ox O2 Delivery O2 Flow Rate FiO2 05/29/16 16:00 100/56 05/29/16 14:00 98.1 78 18 92 High Flow Mask 80 05/29/16 09:15 15.0 I&O- Last 24 Hours up to 6 AM 05/29/16 06:00 Intake Total 900 ml Output Total 770 ml Balance 130 ml Laboratory Data 24H LABS Laboratory Tests 2 05/29/16 05:32: Blood Urea Nitrogen 32H, Creatinine 1.34H, Sodium Level 132L, Potassium Level 3.9, Chloride Level 95L, Carbon Dioxide Level 27, Calcium Level 7.8L, Aspartate Amino Transf (AST/SGOT) 118H, Alanine Aminotransferase (ALT/SGPT) 107H, Alkaline Phosphatase 171H, Total Bilirubin 0.5, Total Protein 6.7, Albumin 2.4L , Albumin/Globulin Ratio 0.56L, Anion Gap 10, Glomerular Filtration Rate 55.3, Lymphocytes (Manual) 2L, Monocytes (Manual) 4, Neutrophils 94H, Platelet Estimate INCREASED, Red Blood Cell Morphology NORMAL CBC/BMP Laboratory Tests 05/29/16 05:32 Calcium Level 7.8 L, Aspartate Amino Transf (AST/SGOT) 118 H, Alanine Aminotransferase (ALT/SGPT) 107 H, Alkaline Phosphatase 171 H, Total Bilirubin 0.5, Total Protein 6.7, Albumin 2.4 L Microbiology Microbiology 05/21/16 Acid Fast Stain - Final, Resulted 05/21/16 Mycobacterial Culture, Resulted Pending 05/21/16 Fungal Smear - Final, Resulted 05/21/16 Fungal Culture, Resulted Pending 05/21/16 Gram Stain - Final, Resulted 05/21/16 Body Fluid Culture - Final, Resulted 05/21/16 Anaerobic Culture - Final, Resulted CINTIA URBAN MD May 29, 2016 18:55 3.9, Chloride Level 95L, Carbon Dioxide Level 27, Calcium Level 7.8L, Aspartate Amino Transf (AST/SGOT) 118H, Alanine Aminotransferase (ALT/SGPT) 107H, Alkaline Phosphatase 171H, Total Bilirubin 0.5, Total Protein 6.7, Albumin 2.4L , Albumin/Globulin Ratio 0.56L, Anion Gap 10, Glomerular Filtration Rate 55.3, Lymphocytes (Manual) 2L, Monocytes (Manual) 4, Neutrophils 94H, Platelet Estimate INCREASED, Red Blood Cell Morphology NORMAL CBC/BMP Laboratory Tests 05/29/16 05:32 Calcium Level 7.8 L, Aspartate Amino Transf (AST/SGOT) 118 H, Alanine Aminotransferase (ALT/SGPT) 107 H, Alkaline Phosphatase 171 H, Total Bilirubin 0.5, Total Protein 6.7, Albumin 2.4 L Microbiology Microbiology 05/21/16 Acid Fast Stain - Final, Resulted 05/21/16 Mycobacterial Culture, Resulted Pending 05/21/16 Fungal Smear - Final, Resulted 05/21/16 Fungal Culture, Resulted Pending 05/21/16 Gram Stain - Final, Resulted 05/21/16 Body Fluid Culture - Final, Resulted 05/21/16 Anaerobic Culture - Final, Resulted CINTIA URBAN MD May 29, 2016 18:55
[2016-05-29 20:06] VITALS: O2SAT 93
[2016-05-29] MEDS: PRAVASTATIN 20 MG TAB PO SCH (20:38)
[2016-05-29 22:00] VITALS: BP 115/59
[2016-05-30] MEDS: PIPERACILLIN/TAZOBACTAM SOD 3.375 GM in D5W MINI-BAG PLUS 50 ML IV SCH ×3 (02:00→13:28)
[2016-05-30] MEDS: methylPREDNISolone INJ 40 MG/1 ML VIAL (J2920) IV SCH ×2 (02:00→09:11)
[2016-05-30] MEDS: NORCO, ANEXSIA 5/325MG TABLET (HYDROcodone/ACETAMINOPHEN) PO PRN ×3 (02:45→20:59)
[2016-05-30] MEDS: ALBUTEROL SULFATE 2.5 MG/0.5 ML INH NEB SOLN INH SCH ×6 (03:15→23:42)
[2016-05-30 03:16] VITALS: O2SAT 89
[2016-05-30] MEDS: SLF 3 ML SYR IV SCH ×3 (05:19→13:28)
[2016-05-30] MEDS: LEVOTHYROXINE 0.05 MG TAB (50 MCG) PO SCH (05:19)
[2016-05-30 06:00] VITALS: BP 101/52
[2016-05-30 07:03] LABS: MEAN CORPUSCULAR HEMOGLOBIN 28.2 pg (27.0-33.0); MEAN CORPUSCULAR HGB CONC 32.2 g/dl (32.0-36.5); MEAN CORPUSCULAR VOLUME 87.8 fl (80.0-96.0); RED CELL DISTRIBUTION WIDTH 13.2 % (11.5-14.5); WHITE BLOOD COUNT 25.3 K/mm3 (4.0-10.0)
[2016-05-30 07:20] LABS: ALBUMIN 2.3 GM/DL (3.2-5.2); ALBUMIN/GLOBULIN RATIO 0.56 (1.00-1.93); ALKALINE PHOSPHATASE 179 U/L (45-117); ALT/SGPT 145 U/L (12-78); ANION GAP 8 MEQ/L (8-16); AST/SGOT 142 U/L (15-37); BILIRUBIN,TOTAL 0.5 MG/DL (0.2-1.0); BLOOD UREA NITROGEN 31 MG/DL (7-18); CARBON DIOXIDE LEVEL 30 MEQ/L (21-32); CHLORIDE LEVEL 96 MEQ/L (98-107); GLOMERULAR FILTRATION RATE > 60.0 (>42); GLUCOSE, FASTING 135 MG/DL (83-110); POTASSIUM SERUM 3.9 MEQ/L (3.5-5.1); SODIUM LEVEL 134 MEQ/L (136-145); TOTAL PROTEIN 6.4 GM/DL (6.4-8.2)
[2016-05-30] MEDS: SYMBICORT 160/4.5MCG INHALER 6GM INH SCH ×2 (07:59→19:26)
[2016-05-30] MEDS: ASPIRIN 81 MG ENTERIC TAB PO SCH (09:10)
[2016-05-30] MEDS: guaiFENesin 200 MG TAB PO SCH ×2 (09:10→20:58)
[2016-05-30] MEDS: GABAPENTIN 300 MG CAP PO SCH ×2 (09:10→20:58)
[2016-05-30] MEDS: AMIODARONE 200 MG TAB (PACERONE) PO SCH ×2 (09:10→20:59)
[2016-05-30] MEDS: FOLIC ACID 1 MG TAB PO SCH (09:11)
[2016-05-30 11:30] VITALS: O2SAT 86
[2016-05-30 14:00] VITALS: BP 117/55
--- NOTE | 2016-05-30 16:56 | IPNPDOC ---
Subjective Date Seen The patient was seen on 05/30/16. Subjective Chief Complaint/HPI The patient is a 75-year-old male admitted with a reason for visit of SOB. Events since last encounter Still with significant RUSSELL, but improved slightly He lost IV access and the nurses have tried several times to get new access, but cannot get an IV started Constitutional: Denies: Chills, Fever Pulmonary: Reports: Cough, Dyspnea Cardiovascular: Denies: Chest Pain, Orthopnea, Palpitations Gastrointestinal: Reports: Constipation (chronic constipation issues unchanged from baseline), Denies: Abdominal Pain, Diarrhea, Nausea, Vomiting Objective Physical Examination General Exam: Positive: Alert, No Acute Distress, Other (frail, cachectic, sitting up in chair appears comfortable, but has dyspnea with minimal exertion) ENT Exam: Positive: Mucous membr. moist/pink Neck Exam: Positive: Supple Chest Exam: Positive: Diminished, Other (bloody sputum noted), Rales Heart Exam: Positive: Normal S1, Tachycardic Abdomen Exam: Positive: Normal bowel sounds, Soft, Negative: Tenderness Extremity Exam: Positive: Edema (trace edema BL) Skin Exam: Positive: Nl turgor and temperature Assessment /Plan Problems (1) Mediastinal mass Status: Acute Problem Specific Plan: Monitor Clinically Problem Text: Adenocarcinoma of the lung. S/p thoracentesis with pathology for tumor markers. Tumor markers returned with high expression of PD-L1. Indicated to pt that Dr. Knight will need to discuss ramifications of this. 05/30 - I spoke with Dr. Manzano - Tumor Markers so far positive for PDL-1. She states that IV Ketruda would be indicated for this but: 1. This cnnot be given in the hospital, 2. It has an increased risk of pnuemonitis and with his poor respiratory status, this is not an option and 3. His performance status is too poor to consider this treatment. The other tumor markers are still pending and will take up to [address] Manzano has spoken with the patient's and will come again this evening to discuss the poor prognosis. She feels that hospice is a reasonable option at this point if the family is ready for this. (2) Pneumonia Status: Acute Problem Text: 05/30 - He lost IV access. I spoke with Dr. Lopez who feels it is reasonable to switch to Ceftin and po prednisone now. If IV treatment needed at some point, PICC would need to be placed. Continue current oxygen therapy and chest PT (3) Junctional tachycardia Status: Acute Discussed With: Manager Pet, Patient, Family with Pt Consent Problem Specific Plan: Consult Specialist, Monitor Clinically, Repeat Labs Problem Text: Unchanged, cardiology following and managing cardio meds. Amiodarone BID. (4) History of adenocarcinoma of lung Status: Chronic Problem Specific Plan: Consult Specialist, Monitor Clinically Problem Text: Per chart, any treatment that the tumor markers would qualify him for would not be curative. See above. (5) CAD (coronary artery disease) of artery bypass graft Status: Chronic Problem Specific Plan: Monitor Clinically Problem Text: Cont with ASA, statin. Cardio follow. (6) Poor prognosis Status: Acute Problem Text: 05/30 - see above regarding this Plan/VTE VTE Prophylaxis Ordered?: Yes Plan Advance Directives: HCP VS, I&O, 24H, Fishbone Vital Signs/I&O Vital Signs Date Time Temp Pulse Resp B/P Pulse Ox O2 Delivery O2 Flow Rate FiO2 05/30/16 14:00 97.9 74 20 117/55 91 High Flow Cannula 80 05/30/16 03:16 15.0 I&O- Last 24 Hours up to 6 AM 05/30/16 06:00 Intake Total 710 ml Output Total 1075 ml Balance -365 ml Laboratory Data 24H LABS Laboratory Tests 2 05/30/16 06:44: Blood Urea Nitrogen 31H, Creatinine 1.20, Sodium Level 134L, Potassium Level 3.9 , Chloride Level 96L, Carbon Dioxide Level 30, Calcium Level 8.0L, Aspartate Amino Transf (AST/SGOT) 142H, Alanine Aminotransferase (ALT/SGPT) 145H, Alkaline Phosphatase 179H, Total Bilirubin 0.5, Total Protein 6.4, Albumin 2.3L , Albumin/Globulin Ratio 0.56L, Anion Gap 8, Atypical Lymphocytes 1, Glomerular Filtration Rate > 60.0, Lymphocytes (Manual) 1L, Monocytes (Manual) 2, Neutrophils 96H, Platelet Estimate INCREASED, Red Blood Cell Morphology NORMAL CBC/BMP Laboratory Tests 05/30/16 06:44 Calcium Level 8.0 L, Aspartate Amino Transf (AST/SGOT) 142 H, Alanine Aminotransferase (ALT/SGPT) 145 H, Alkaline Phosphatase 179 H, Total Bilirubin 0.5, Total Protein 6.4, Albumin 2.3 L Microbiology Microbiology 05/21/16 Acid Fast Stain - Final, Resulted 05/21/16 Mycobacterial Culture, Resulted Pending 05/21/16 Fungal Smear - Final, Resulted 05/21/16 Fungal Culture, Resulted Pending 05/21/16 Gram Stain - Final, Complete 05/21/16 Body Fluid Culture - Final, Complete Anaerobic Cocci 05/21/16 Anaerobic Culture - Final, Complete Attending Note Attending Note Patient seen. Worsening oxygenation status and xray showing extensive edema. Suspect lymphangitis no pulmonary edema, but will give additional one time oral dose of Torsemide 50 to see if any diuresis can be stimulated. LISBET SHERMAN PA-C May 30, 2016 16:56 Fletcher Jason MD May 30, 2016 17:37
[2016-05-30] MEDS ORDERED: TORSEMIDE (DEMADEX) 50 MG PER 1/2 TAB PO ONE (18:00)
--- NOTE | 2016-05-30 18:32 | IPN ---
DATE: 05/30/2016 Mr. Griffin has progressive oxygen requirement, now on face mask. Pathology has not yet emerged for EGFR, ALK, ROS1, but PDL1 is 90% positive. In a patient with a performance status of 1, 2 or even 3, this patient would be potentially candidate for immunotherapy. However, immunotherapy with pembrolizumab in the [facility] setting currently would need to be given outpatient. Moreover, with performance status 4, meaning, essentially bed- or chair-bound, and progressive oxygen requirement, Mr. Griffin is unlikely to be able to survive even a mild pneumonitis toxicity, a potential toxicity of pembrolizumab. I have spoken with Gen and his Camille (Camille and I are acquainted from prior patient care). I was chaim and straightforward in recommending hospice care. I explained that PDL1 is positive but given his current performance status, his multiple comorbidities, his worsening oxygenation, it is unreasonable to consider treating treatment with pembrolizumab. I am strongly recommending hospice care. They accepted. He is DNR currently. We talked about comfort measures and Camille said this has already been established, however Dr. Palumbo says this has not been. I will defer this discussion at present as having left the room Gen and in his were tearful and at adapting to the hospice idea. I did talk about the possible need for being in the hospice center itself if that is available. And the possible need to starting going on comfort measures while inpatient now. I have already put in a hospice consult. . I will be glad to help as needed in future for the present, however, the patient has opted for hospice care. I think this is most appropriate. His life expectancy is on the order of less than a month with comfort measures only and probably even less than that. He has deteriorated just over the weekend boating ill for prognosis. 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 PDL1 and pleural fluid cell block was positive 90%, but the patient's performance status is too poor to begin active treatment. I have recommended and he has accepted hospice care. MTDD
[2016-05-30] MEDS: PRAVASTATIN 20 MG TAB PO SCH (20:58)
[2016-05-30] MEDS: CEFUROXIME 500 MG TAB PO SCH (20:58)
[2016-05-30] MEDS: predniSONE 20 MG TAB PO SCH (20:59)
[2016-05-30 22:00] VITALS: BP 101/54
[2016-05-31] MEDS: NORCO, ANEXSIA 5/325MG TABLET (HYDROcodone/ACETAMINOPHEN) PO PRN ×3 (03:27→15:06)
[2016-05-31] MEDS: ALBUTEROL SULFATE 2.5 MG/0.5 ML INH NEB SOLN INH SCH ×6 (03:43→23:17)
[2016-05-31 06:00] VITALS: BP 92/54
[2016-05-31] MEDS: LEVOTHYROXINE 0.05 MG TAB (50 MCG) PO SCH (06:07)
[2016-05-31 06:42] LABS: MEAN CORPUSCULAR HEMOGLOBIN 28.8 pg (27.0-33.0); MEAN CORPUSCULAR HGB CONC 32.6 g/dl (32.0-36.5); MEAN CORPUSCULAR VOLUME 88.4 fl (80.0-96.0); RED CELL DISTRIBUTION WIDTH 13.4 % (11.5-14.5)
[2016-05-31 06:47] LABS: WHITE BLOOD COUNT 33.5 K/mm3 (4.0-10.0)
[2016-05-31 07:09] LABS: ALBUMIN 2.6 GM/DL (3.2-5.2); ALBUMIN/GLOBULIN RATIO 0.57 (1.00-1.93); BILIRUBIN,TOTAL 0.5 MG/DL (0.2-1.0); CALCIUM LEVEL 8.4 MG/DL (8.8-10.2); CREATININE FOR GFR 1.46 MG/DL (0.70-1.30); GLOMERULAR FILTRATION RATE 50.1 (>42); POTASSIUM SERUM 4.2 MEQ/L (3.5-5.1); TOTAL PROTEIN 7.2 GM/DL (6.4-8.2)
[2016-05-31] MEDS: SYMBICORT 160/4.5MCG INHALER 6GM INH SCH ×3 (07:10→19:31)
[2016-05-31 07:16] LABS: OVALOCYTES 1+; PLATELET CLUMPS SMALL AMT
[2016-05-31] MEDS: predniSONE 20 MG TAB PO SCH ×2 (08:29→20:46)
[2016-05-31] MEDS: GABAPENTIN 300 MG CAP PO SCH ×2 (08:29→20:46)
[2016-05-31] MEDS: ASPIRIN 81 MG ENTERIC TAB PO SCH (08:29)
[2016-05-31] MEDS: AMIODARONE 200 MG TAB (PACERONE) PO SCH ×2 (08:30→20:46)
[2016-05-31] MEDS: FOLIC ACID 1 MG TAB PO SCH (08:30)
[2016-05-31] MEDS: guaiFENesin 200 MG TAB PO SCH ×2 (08:30→20:46)
[2016-05-31] MEDS: CEFUROXIME 500 MG TAB PO SCH ×2 (08:30→20:46)
--- NOTE | 2016-05-31 13:13 | IPNPDOC ---
Subjective Date Seen The patient was seen on 05/31/16. Subjective Chief Complaint/HPI The patient is a 75-year-old male admitted with a reason for visit of SOB. Events since last encounter Patient c/o more pain in his upper back and shortness of breath today Per , she has spoken with Dr. Manzano and Dr. Jason and would like to pursue hospice care. . Constitutional: Denies: Chills, Fever Pulmonary: Reports: Cough, Dyspnea Cardiovascular: Reports: Chest Pain, Denies: Palpitations Gastrointestinal: Denies: Abdominal Pain, Diarrhea, Nausea, Vomiting Objective Physical Examination General Exam: Positive: Other (Drowsy but arousable, dyspneaic with minimal exertion. ) ENT Exam: Positive: Mucous membr. moist/pink Neck Exam: Positive: Supple Chest Exam: Positive: Diminished, Other (bloody sputum noted), Rales Heart Exam: Positive: Normal S1, Tachycardic Abdomen Exam: Positive: Normal bowel sounds, Soft, Negative: Tenderness Extremity Exam: Positive: Edema (trace edema BL) Skin Exam: Positive: Nl turgor and temperature Assessment /Plan Problems (1) Mediastinal mass Status: Acute Problem Specific Plan: Monitor Clinically Problem Text: 05/31 - I spoke with Dr. Manzano this morning. She spoke witht he last evening and they have decidedon Hospice referral. Hospice will be coming in to meet with at 1:30 today Currently he is c/o increased pain in his left upper back and is more SOb at times. His is at the bedside and desires SORT SUPERVISOR at this time. Adenocarcinoma of the lung. S/p thoracentesis with pathology for tumor markers. Tumor markers returned with high expression of PD-L1. 05/30 - I spoke with Dr. Manzano - Tumor Markers so far positive for PDL-1. She states that IV Ketruda would be indicated for this but: 1. This cnnot be given in the hospital, 2. It has an increased risk of pnuemonitis and with his poor respiratory status, this is not an option and 3. His performance status is too poor to consider this treatment. The other tumor markers are still pending and will take up to [address] Manzano has spoken with the patient's and will come again this evening to discuss the poor prognosis. She feels that hospice is a reasonable option at this point if the family is ready for this. (2) Pneumonia Status: Acute Problem Text: 05/30 - He lost IV access. I spoke with Dr. Lopez who feels it is reasonable to switch to Ceftin and po prednisone now. If IV treatment needed at some point, PICC would need to be placed. 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 Amiodarone BID. (4) History of adenocarcinoma of lung Status: Chronic Problem Specific Plan: Consult Specialist, Monitor Clinically Problem Text: Per chart, any treatment that the tumor markers would qualify him for would not be curative. See above. (5) CAD (coronary artery disease) of artery bypass graft Status: Chronic Problem Specific Plan: Monitor Clinically Problem Text: Cont with ASA, statin. Cardio follow. (6) Poor prognosis Status: Acute Problem Text: 05/30 - see above regarding this Plan/VTE VTE Prophylaxis Ordered?: Yes Plan Advance Directives: HCP VS, I&O, 24H, [facility] Vital Signs/I&O Vital Signs Date Time Temp Pulse Resp B/P Pulse Ox O2 Delivery O2 Flow Rate FiO2 05/31/16 09:10 22 Comfort Flow 40.0 05/31/16 09:00 100 05/31/16 06:00 97.6 83 92/54 84 I&O- Last 24 Hours up to 6 AM 05/31/16 05:59 Intake Total 900 ml Output Total 1950 ml Balance -1050 ml Laboratory Data 24H LABS Laboratory Tests 2 05/31/16 06:07: Blood Urea Nitrogen 37H, Creatinine 1.46H, Sodium Level 136, Potassium Level 4.2 , Chloride Level 92L, Carbon Dioxide Level 33H, Calcium Level 8.4L, Aspartate Amino Transf (AST/SGOT) 96H, Alanine Aminotransferase (ALT/SGPT) 134H, Alkaline Phosphatase 213H, Total Bilirubin 0.5, Total Protein 7.2, Albumin 2.6L, Albumin/ Globulin Ratio 0.57L, Anion Gap 11, Clumped Platelets SMALL AMT, Glomerular Filtration Rate 50.1, Lymphocytes (Manual) 2L, Monocytes (Manual) 3, Neutrophils 95H, Ovalocytes 1+, Platelet Estimate INCREASED CBC/BMP Laboratory Tests 05/31/16 06:07 Calcium Level 8.4 L, Aspartate Amino Transf (AST/SGOT) 96 H, Alanine Aminotransferase (ALT/SGPT) 134 H, Alkaline Phosphatase 213 H, Total Bilirubin 0.5, Total Protein 7.2, Albumin 2.6 L Microbiology Microbiology 05/21/16 Acid Fast Stain - Final, Resulted 05/21/16 Mycobacterial Culture, Resulted Pending 05/21/16 Fungal Smear - Final, Resulted 05/21/16 Fungal Culture, Resulted Pending 05/21/16 Gram Stain - Final, Complete 05/21/16 Body Fluid Culture - Final, Complete Anaerobic Cocci 05/21/16 Anaerobic Culture - Final, Complete LISBET SHERMAN PA-C May 31, 2016 13:13
[2016-05-31] MEDS ORDERED: MORPHINE 10MG/0.5ML ORAL CONCENTRATE SOLUTION U/D SL PRN (13:15)
[2016-05-31] MEDS ORDERED: LORazepam 2 MG/ML VIAL (J2060) IV PRN (13:15)
[2016-05-31] MEDS: LORazepam 1 MG TAB PO PRN ×3 (15:06→23:05)
--- NOTE | 2016-06-03 15:16 | DSES ---
DATE OF ADMISSION: 05/18/2016 DATE OF EXPIRATION: 06/01/2016 BRIEF HISTORY AND PHYSICAL: The patient is a 75-year-old patient of Dr. Wilson'naomi with a history of adenocarcinoma who presented with a cough for 2 weeks, given amoxicillin prior to admission, presented to the hospital with increased shortness of breath and a heart rate of 120, found to have a junctional rhythm. Past medical history is significant for coronary artery disease, status post coronary artery bypass graft (CABG), hypertension, adenocarcinoma, chronic obstructive pulmonary disease (COPD), former smoker, bone cancer, AV malformation of the brain. Pertinent labs on admission: White count 8.9, hemoglobin 11.5, platelets 384,000. Sodium 139, potassium 3.9, BUN 12, creatinine 0.96, glucose 105, CRP 12.6. Troponin 0.32. Chest x-ray showed question small right effusion, pulmonary vascular congestion on the right, chronic changes on the left with a CT angio on admission that showed a large right hilar and suprahilar mass, extensive right hilar adenopathy , diffuse mediastinal adenopathy and large right pleural effusion. Followup CT with contrast showed increased right pleural effusion, increased abnormal right lower and middle lobe opacities with increased opacities in the right upper lobe , right hilar and bronchial findings, new abnormal left upper lobe opacity, unchanged innumerable nodular densities throughout the lung ulloa. EKG showed ectopic atrial tachycardia with moderate T-wave abnormalities, consider ischemia. HOSPITAL COURSE: 1. Junctional tachycardia. The patient was evaluated by cardiology, placed on amiodarone and his rhythm essentially returned to sinus. 2. Mediastinal mass. Thoracentesis was performed on 05/21/2016, and the patient was seen by oncology. The thoracentesis was positive for malignancy, consistent with poorly differentiated adenocarcinoma and ultimately tumor markers showed PD-L1, tumor proportion score of 90% high expression. Dr. Knight was in communication with the patient and the and although the PD-L1 positive markers make Keytruda a possible indicated treatment, it cannot be given in the hospital. He had increased risk of pneumonitis and because of his poor respiratory status, this was not felt to be an option. Also, he had incredibly poor performance status which prevents his ability to undergo such aggressive treatment. Dr. Knight spoke further with the patient and his , and they decided to pursue hospice. His respiratory status continued to decline and despite treatment with antibiotics for what was felt to possibly be some postobstructive pneumonia on admission related to the tumor, nebulized bronchodilators, Solu-Medrol and high-flow oxygen, he was unable to maintain his oxygen saturations. 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 3. The patient was treated for pneumonia which was felt to be present on admission. MTDD
== END 2016-06-01 | disposition expired | DRG 180 ==
LOC: M ED 15:16 → M ED INP 21:34 → M PCU 05-19 12:06 → M MSPAV 05-23 12:34
PROVIDERS: ADMIT Internal Medicine; ATTEND Family Medicine
PROC: 0W9930Z Drainage of Right Pleural Cavity with Drainage Device, Percutaneous Approach (ICD-10-PCS; principal; 2016-05-21)
DX: C34.81 Malignant neoplasm of overlapping sites of right bronchus and lung (principal); J18.9 Pneumonia, unspecified organism; Q28.2 Arteriovenous malformation of cerebral vessels; I47.1 Supraventricular tachycardia; J91.0 Malignant pleural effusion; I25.10 Atherosclerotic heart disease of native coronary artery without angina pectoris; I11.9 Hypertensive heart disease without heart failure; Z51.5 Encounter for palliative care; Z66 Do not resuscitate; I34.8 Other nonrheumatic mitral valve disorders; I35.8 Other nonrheumatic aortic valve disorders; F10.21 Alcohol dependence, in remission; R94.6 Abnormal results of thyroid function studies; J44.9 Chronic obstructive pulmonary disease, unspecified; Z87.891 Personal history of nicotine dependence; Z95.1 Presence of aortocoronary bypass graft; Z85.830 Personal history of malignant neoplasm of bone; Z88.8 Allergy status to other drugs, medicaments and biological substances; Z79.82 Long term (current) use of aspirin; Z92.21 Personal history of antineoplastic chemotherapy; Z92.3 Personal history of irradiation; Z85.110 Personal history of malignant carcinoid tumor of bronchus and lung; Z82.49 Family history of ischemic heart disease and other diseases of the circulatory system